=== PATIENT | female | born 1995 | race Caucasian/White ===

== ENCOUNTER 2018-11-04 11:50 | Inpatient (IN) ==
[2018-11-04] MEDS ORDERED: Sod Chloride 0.9% Inj 1,000 ML IV.SIG ONE (12:11)
[2018-11-04] MEDS ORDERED: Acetaminophen 325 MG Tablet PO ONE (12:11)
--- NOTE | 2018-11-04 12:15 | ED ---
HPI General Chief complaint: Nausea/Vomiting/Diarrhea Stated complaint: GI/ Complaint Time Seen by Provider: 11/04/18 12:11 History of Present Illness HPI narrative: SARABJIT Patient is a 23-year-old otherwise healthy female presents emergency department with headache back pain abdominal cramping fever and vomiting since as well as some nonbloody diarrhea starting from this morning. Patient states she did not get a flu shot this year. She is also been having some cough and congestion. She tried some Motrin earlier this morning with minimal relief. States she is never had symptoms like this before. Did not get a flu shot this year. No history of surgeries, non-smoker. States he feels just fairly run down. Symptoms moderate, started today, associated signs symptoms and context as above. Related Data Home Medications Medication Instructions Recorded Confirmed No Known Home Medications 11/04/18 11/04/18 Allergies Allergy/AdvReac Type Severity Reaction Status Date / Time No Known Allergies Allergy Verified 11/04/18 12:44 Review of Systems ROS: all other systems reviewed are negative [facility] Medical History Medical History Anemia (Acute) Asthma (Acute) Surgical History Surgical History No history of previous surgery (Acute) Family History Family History Other Family history normal Social History Social History Substance History: No History of Abuse Second Hand Smoke Exposure: No Smoking Status: Never smoker How Often Do You Have a Drink Containing Alcohol: Never Recent Travel in [facility] within the Last 8 Weeks: No Recent Out of Country Travel within the Last 8 Weeks: No Exam Narrative Exam Narrative: GENERAL: Well-developed well-nourished, no obvious distress. Appears healthy and nontoxic per SKIN: Focused skin assessment warm/dry. HEAD: Atraumatic. Normocephalic. EYES: Pupils equal and round. No scleral icterus. No injection or drainage. ENT: No nasal bleeding or discharge. Mucous membranes pink and moist. TMs clear bilaterally, oropharynx clear moist. NECK: Trachea midline. No JVD. CARDIOVASCULAR: Regular rhythm with tachycardia. No murmur appreciated. RESPIRATORY: No accessory muscle use. Clear to auscultation. Breath sounds equal bilaterally. GASTROINTESTINAL: Abdomen soft, non-tender, nondistended. Hepatic and splenic margins not palpable. MUSCULOSKELETAL: No obvious deformities. No clubbing. No cyanosis. No edema. NEUROLOGICAL: Awake and alert. No obvious cranial nerve deficits. Motor grossly within normal limits. Normal speech. PSYCHIATRIC: Appropriate mood and affect; insight and judgment normal. Course Initial Documented Vital Signs Temperature 100.3 F H 11/04/18 11:51 Pulse Rate 149 H 11/04/18 11:51 Respiratory Rate 22 11/04/18 11:51 Blood Pressure 129/75 11/04/18 11:51 Pulse Oximetry 97 11/04/18 11:51 Last Documented Vital Signs Temperature 98.1 F 11/05/18 04:00 Pulse Rate 109 H 11/05/18 04:00 Respiratory Rate 18 11/05/18 04:00 Blood Pressure 129/73 11/05/18 04:00 Pulse Oximetry 97 11/05/18 04:00 Medical Decision Making MDM Narrative Medical decision making narrative: Patient seen and examined by me Dr. Baker, signs symptoms consistent with influenza illness, pulse of 149, temp 100.3. Tylenol normal saline Zofran have been ordered. The patient defervesced as well she can be discharged home with treatment for influenza-like illness symptomatic management. Influenza testing is also been ordered. There is any indication for chest x-ray or further imaging at this time. Patient seen as part of rapid medical assessment in triage. They were handed off to the [facility] to follow the MDM as outlined above. If results are outside the patient's expected ED course then either myself or the other physicians will be available for consultation. CBC unremarkable. CMP unremarkable Lipase 82. Magnesium 1.9. Urinalysis without signs of infection. Influenza negative. Chest x-ray concludes: mild diffuse reticular/reticulonodular pattern in the lungs bilaterally. Recommend noncontrast chest CT to evaluate for interstitial lung disease. A copy of the x-ray report was printed out when will be provided to the patient. Patient's heart rate has 3 elevated back into the 130s and her fever is 100.8. EKG, CTA, Toradol ordered. Informed Dr. Sheriff if patient findings. She recommended a third normal saline bolus if EKG shows sinus tachycardia. EKG showed sinus tachycardia. Third normal saline bolus ordered. Patient continuously complaining of abdominal pain as I am discussing her findings and continue plan of care. I will add a CT abdomen/pelvis to rule out any acute findings. 1900: Patient reported off to Jaleesa Wilcox PA-C at change of shift. CT of the chest shows an atypical/possible fungal pneumonia. It is suggestive of a tuberculosis if patient is running a fever which patient has been running a fever since arrival. Discussed with Dr. Sheriff who stated that we will start patient on Rocephin and azithromycin admit to medicine for ID consultation. Patient will be placed in isolation/isolation precautions. Medical Screen Exam Complete: Yes Emergency Medical Condition: Yes Differential Diagnosis Differential Diagnosis: Pneumonia, sepsis, PE, appendicitis, gastroenteritis Lab Data Lab results reviewed: Yes I reviewed the patient's lab results. Result diagrams: 11/05/18 06:15 11/05/18 06:15 POC Results POC Urine Results Negative Lab Results 11/04/18 11/04/18 11/04/18 Range/Units 12:50 12:50 14:40 WBC 7.6 (4.0-11.0) th/mm3 RBC 5.46 H (4.00-5.30) mil/mm3 Hgb 11.9 (11.6-15.3) gm/dL Hct 37.3 (35.0-46.0) % MCV 68.4 L (80.0-100.0) fL MCH 21.9 L (27.0-34.0) pg MCHC 32.0 (32.0-36.0) % RDW 17.2 (11.6-17.2) % Plt Count 278 (150-450) th/mm3 MPV 8.7 (7.0-11.0) fL Neut % (Auto) 92.8 H (16.0-70.0) % Lymph % (Auto) 4.0 L (9.0-44.0) % Hart % (Auto) 3.1 (0.0-8.0) % Eos % (Auto) 0.0 (0.0-4.0) % Baso % (Auto) 0.1 (0.0-2.0) % Neut # (Auto) 7.1 (1.8-7.7) th/mm3 Lymph # (Auto) 0.3 L (1.0-4.8) th/mm3 Hart # (Auto) 0.2 (0.0-0.9) th/mm3 Eos # (Auto) 0.0 (0.0-0.4) th/mm3 Baso # (Auto) 0.0 (0.0-0.2) th/mm3 WBC Differential . Differential Comment Auto diff final Sodium 138 (136-145) meq/L Potassium 3.8 (3.5-5.1) meq/L Chloride 107 (98-107) meq/L Carbon Dioxide 23.9 (21.0-32.0) meq/L Anion Gap 7 (5-15) meq/L BUN 11 (7-18) mg/dL Creatinine 0.56 (0.50-1.00) mg/dL Estimated GFR Greater than 89 (>89) mL/min Random Glucose 94 (74-106) mg/dL Lactic Acid (0.4-2.0) mmol/L Calcium 8.3 L (8.5-10.1) mg/dL Calcium Adj for Albumin (8.5-10.1) mg/dL Magnesium 1.9 (1.5-2.5) mg/dL Total Bilirubin 0.5 (0.2-1.0) mg/dL AST 18 (15-37) U/L ALT 29 (10-53) U/L Alkaline Phosphatase 119 H (45-117) U/L Total Protein 7.6 (6.4-8.2) g/dL Albumin 3.7 (3.4-5.0) g/dL Lipase 82 (73-393) U/L Urine Color Yellow (Yellw/Straw) Urine Clarity Hazy H (Clear) Urine pH 5.0 (5.0-8.5) Ur Specific [place] 1.026 (1.002-1.035) Urine Protein Negative (Neg-Trace) mg/dL Urine Glucose (UA) Negative (Negative) mg/dL Urine Ketones 20 (Negative) mg/dL Urine Occult Blood Negative (Negative) Urine Nitrate Negative (Negative) Urine Bilirubin Negative (Negative) Urine Urobilinogen Less than 2 (Less than 2) mg/dL Ur Leukocyte Esterase Negative (Negative) Urine WBC Less than 1 (0-5) /hpf Ur Squamous Epith Cells 1 (0-5) /hpf Urine Bacteria Rare H (None) /hpf Urine Mucus Many H (Occasional) /lpf Micro UA Comment Culture not ind Ur Microscopic Review Not Reportable Urine Culture Comments Culture not ind Stl C.difficile DNA Amp (Negative) St C. diff Tox Epid 027 (Negative) 11/04/18 11/05/18 11/05/18 Range/Units 21:25 03:38 06:15 WBC 4.4 (4.0-11.0) th/mm3 RBC 4.74 (4.00-5.30) mil/mm3 Hgb 10.3 L (11.6-15.3) gm/dL Hct 32.3 L (35.0-46.0) % MCV 68.2 L (80.0-100.0) fL MCH 21.7 L (27.0-34.0) pg MCHC 31.8 L (32.0-36.0) % RDW 17.1 (11.6-17.2) % Plt Count 213 (150-450) th/mm3 MPV 9.0 (7.0-11.0) fL Neut % (Auto) 80.9 H (16.0-70.0) % Lymph % (Auto) 12.4 (9.0-44.0) % Hart % (Auto) 6.5 (0.0-8.0) % Eos % (Auto) 0.0 (0.0-4.0) % Baso % (Auto) 0.2 (0.0-2.0) % Neut # (Auto) 3.5 (1.8-7.7) th/mm3 Lymph # (Auto) 0.5 L (1.0-4.8) th/mm3 Hart # (Auto) 0.3 (0.0-0.9) th/mm3 Eos # (Auto) 0.0 (0.0-0.4) th/mm3 Baso # (Auto) 0.0 (0.0-0.2) th/mm3 WBC Differential . Differential Comment Auto diff final Sodium (136-145) meq/L Potassium (3.5-5.1) meq/L Chloride (98-107) meq/L Carbon Dioxide (21.0-32.0) meq/L Anion Gap (5-15) meq/L BUN (7-18) mg/dL Creatinine (0.50-1.00) mg/dL Estimated GFR (>89) mL/min Random Glucose (74-106) mg/dL Lactic Acid 0.9 (0.4-2.0) mmol/L Calcium (8.5-10.1) mg/dL Calcium Adj for Albumin (8.5-10.1) mg/dL Magnesium (1.5-2.5) mg/dL Total Bilirubin (0.2-1.0) mg/dL AST (15-37) U/L ALT (10-53) U/L Alkaline Phosphatase (45-117) U/L Total Protein (6.4-8.2) g/dL Albumin (3.4-5.0) g/dL Lipase (73-393) U/L Urine Color (Yellw/Straw) Urine Clarity (Clear) Urine pH (5.0-8.5) Ur Specific [place] (1.002-1.035) Urine Protein (Neg-Trace) mg/dL Urine Glucose (UA) (Negative) mg/dL Urine Ketones (Negative) mg/dL Urine Occult Blood (Negative) Urine Nitrate (Negative) Urine Bilirubin (Negative) Urine Urobilinogen (Less than 2) mg/dL Ur Leukocyte Esterase (Negative) Urine WBC (0-5) /hpf Ur Squamous Epith Cells (0-5) /hpf Urine Bacteria (None) /hpf Urine Mucus (Occasional) /lpf Micro UA Comment Ur Microscopic Review Urine Culture Comments Stl C.difficile DNA Amp Negative (Negative) St C. diff Tox Epid 027 Negative (Negative) 11/05/18 Range/Units 06:15 WBC (4.0-11.0) th/mm3 RBC (4.00-5.30) mil/mm3 Hgb (11.6-15.3) gm/dL Hct (35.0-46.0) % MCV (80.0-100.0) fL MCH (27.0-34.0) pg MCHC (32.0-36.0) % RDW (11.6-17.2) % Plt Count (150-450) th/mm3 MPV (7.0-11.0) fL Neut % (Auto) (16.0-70.0) % Lymph % (Auto) (9.0-44.0) % Hart % (Auto) (0.0-8.0) % Eos % (Auto) (0.0-4.0) % Baso % (Auto) (0.0-2.0) % Neut # (Auto) (1.8-7.7) th/mm3 Lymph # (Auto) (1.0-4.8) th/mm3 Hart # (Auto) (0.0-0.9) th/mm3 Eos # (Auto) (0.0-0.4) th/mm3 Baso # (Auto) (0.0-0.2) th/mm3 WBC Differential Differential Comment Sodium 140 (136-145) meq/L Potassium 3.1 L (3.5-5.1) meq/L Chloride 110 H (98-107) meq/L Carbon Dioxide 19.8 L (21.0-32.0) meq/L Anion Gap 10 (5-15) meq/L BUN 6 L (7-18) mg/dL Creatinine 0.41 L (0.50-1.00) mg/dL Estimated GFR Greater than 89 (>89) mL/min Random Glucose 87 (74-106) mg/dL Lactic Acid (0.4-2.0) mmol/L Calcium 7.1 L* D (8.5-10.1) mg/dL Calcium Adj for Albumin 8.1 L (8.5-10.1) mg/dL Magnesium (1.5-2.5) mg/dL Total Bilirubin (0.2-1.0) mg/dL AST (15-37) U/L ALT (10-53) U/L Alkaline Phosphatase (45-117) U/L Total Protein (6.4-8.2) g/dL Albumin 2.8 L D (3.4-5.0) g/dL Lipase (73-393) U/L Urine Color (Yellw/Straw) Urine Clarity (Clear) Urine pH (5.0-8.5) Ur Specific [place] (1.002-1.035) Urine Protein (Neg-Trace) mg/dL Urine Glucose (UA) (Negative) mg/dL Urine Ketones (Negative) mg/dL Urine Occult Blood (Negative) Urine Nitrate (Negative) Urine Bilirubin (Negative) Urine Urobilinogen (Less than 2) mg/dL Ur Leukocyte Esterase (Negative) Urine WBC (0-5) /hpf Ur Squamous Epith Cells (0-5) /hpf Urine Bacteria (None) /hpf Urine Mucus (Occasional) /lpf Micro UA Comment Ur Microscopic Review Urine Culture Comments Stl C.difficile DNA Amp (Negative) St C. diff Tox Epid 027 (Negative) Imaging Data Attestation: I personally reviewed and interpreted this imaging study as follows : Radiologist's impression: Chest X-Ray 11/04/18 17:24 CONCLUSION: Mild diffuse reticular/reticulonodular pattern in the lungs bilaterally. Recommend noncontrast chest CT to evaluate for interstitial lung disease. Chest CTA 11/04/18 18:34 CONCLUSION: 1. Miliary pattern. Differential diagnostic considerations are quite broad and can be divided into the a febrile and nonfebrile patient. If the patient is febrile infectious etiologies that are atypical such as tuberculosis or fungal fungal should be considered. In the afebrile patient considerations would include hypersensitivity pneumonitis, sarcoidosis, and Langerhans cell histiocytosis just to name a few. Abdomen/Pelvis CT 11/04/18 18:59 CONCLUSION: 1. Trace amount of free fluid within the cul-de-sac. 2. No acute abnormality. Discharge Plan Discharge Disposition Patient Disposition: ED Admit(ED Internal Use Only) Discharge Condition Condition: Stable Discharge Order Discharge Orders: ED Use Only Admit Order (Routine); Ordered 11/04/18 Ordered By: Jaleesa Wilcox Discharge Details Diagnosis: Fever, Tachycardia, Pneumonia Physicians Team ED Provider: Humphrey Baker ED Midlevel Provider: Felecia Sotomayor Primary Care Provider: Primary Care Jasmin Perez Attending Provider: Dmitriy Whitten Other Providers: Dominik Fuentes Status ED Status: Left Department Discharge Information Discharge Date/Time: 11/05/18 01:18
[2018-11-04 13:08] LABS: Baso % (Auto) 0.1 % (0.0-2.0); Hematocrit 37.3 % (35.0-46.0); Hemoglobin 11.9 gm/dL (11.6-15.3); Lymph # (Auto) 0.3 th/mm3 (1.0-4.8); Mean Corpuscular Hemoglobin 21.9 pg (27.0-34.0); Mean Corpuscular Volume 68.4 fL (80.0-100.0); Mean Platelet Volume 8.7 fL (7.0-11.0); Mono # (Auto) 0.2 th/mm3 (0.0-0.9); Mono % (Auto) 3.1 % (0.0-8.0); Neut # (Auto) 7.1 th/mm3 (1.8-7.7); Neut % (Auto) 92.8 % (16.0-70.0); Platelet Count 278 th/mm3 (150-450); Red Blood Count 5.46 mil/mm3 (4.00-5.30); Red Cell Distribution Width 17.2 % (11.6-17.2); White Blood Count 7.6 th/mm3 (4.0-11.0)
[2018-11-04 13:28] LABS: Alanine Aminotransferase 29 U/L (10-53); Albumin 3.7 g/dL (3.4-5.0); Anion Gap 7 meq/L (5-15); Aspartate Aminotransferase 18 U/L (15-37); Blood Urea Nitrogen 11 mg/dL (7-18); Calcium 8.3 mg/dL (8.5-10.1); Carbon Dioxide 23.9 meq/L (21.0-32.0); Chloride 107 meq/L (98-107); Glomerular Filtration Rate Greater Than 89 mL/min (>89); Glucose,Random 94 mg/dL (74-106); Lipase 82 U/L (73-393); Magnesium 1.9 mg/dL (1.5-2.5); Potassium 3.8 meq/L (3.5-5.1); Sodium 138 meq/L (136-145)
[2018-11-04 13:30] LABS: Alkaline Phosphatase 119 U/L (45-117); Total Protein 7.6 g/dL (6.4-8.2)
[2018-11-04 15:10] LABS: Bacteria,Urine Rare /hpf; Bilirubin,Urine Negative (Negative); Clarity,Urine Hazy (Clear); Color,Urine Yellow (Yellw/Straw); Glucose,Urine (UA) Negative (Negative); Leukocyte Esterase,Urine Negative (Negative); Mucus,Urine Many /lpf (Occasional); Nitrite,Urine Negative (Negative); Specific Gravity,Urine 1.026 (1.002-1.035); Squamous Epithelial Cell,Urine 1 /hpf (0-5)
[2018-11-04] MEDS ORDERED: Sod Chloride 0.9% Inj 1,000 ML IV.SIG SCH ×2 (17:30→19:00)
--- NOTE | 2018-11-04 17:50 | XR ---
EXAM DATE: 11/04/2018 5:47 PM EST AGE/SEX: 23 years / Female INDICATIONS: Cough. CLINICAL DATA: This is the patient's initial encounter. Patient reports that signs and symptoms have been present for 1 day and indicates a pain score of 0/10. MEDICAL/SURGICAL HISTORY: None. None. COMPARISON: No prior exams available for comparison. FINDINGS: Single AP view of the chest. There is a faint diffuse reticular or reticulonodular pattern in the jake gs. No evidence of focal pulmonary consolidation. No pleural effusion or pneumothorax. Cardiomediasti nal silhouette within normal limits. CONCLUSION: Mild diffuse reticular/reticulonodular pattern in the lungs bilaterally. Recommend noncontrast chest CT to evaluate for interstitial lung disease. Electronically signed by: Luigi Landry MD Board Certified Radiologist 11/04/2018 5:49 PM EST
[2018-11-04] MEDS ORDERED: Ketorolac Inj 30 MG/ML (IVP) Vial IV.PUSH ONE (18:44)
--- NOTE | 2018-11-04 19:30 | CT ---
EXAM DATE: 11/04/2018 7:21 PM EST AGE/SEX: 23 years / Female INDICATIONS: Chest x-ray recommended cat scan of chest, body aches, fever, vomiting, cough. CLINICAL DATA: This is the patient's initial encounter. Patient reports that signs and symptoms have been present for 1 day and indicates a pain score of 10/10. MEDICAL/SURGICAL HISTORY: Asthma. Anemia. None. RADIATION DOSE: 6.81 CTDI (mGy) COMPARISON: C, CHEST 1V SINGLE AP, 11/04/2018. . TECHNIQUE: Volumetric scanning was performed using a multi-row detector CT scanner during bolus infu grace of 64 ml Omnipaque 350 (iohexol) nonionic water-soluble contrast as a cumulative dose for multi ple exams. The data was post processed with a variety of visualization algorithms including full volu me maximum intensity projection and sliding thin slab reformation. Using automated exposure control a nd adjustment of the mA and/or kV according to patient size, radiation dose was kept as low as reason ably achievable to obtain optimal diagnostic quality images. DICOM format image data is available el ectronically for review and comparison. FINDINGS: Pulmonary Arteries: No filling defects are seen in the pulmonary arteries out to the subsegmental ve ssels. The left and right pulmonary arteries are normal in diameter. Lung: A miliary pattern is seen involving the lungs. Subpleural interlobular septal thickening also noted.. Effusion: None. Mediastinum: The heart is normal in size. No pericardial effusion. No evidence of mediastinal or christa r adenopathy. Other: The axilla is unremarkable. See the CT of the abdomen reported separately. CONCLUSION: 1. Miliary pattern. Differential diagnostic considerations are quite broad and can be divided into t he a febrile and nonfebrile patient. If the patient is febrile infectious etiologies that are atypica l such as tuberculosis or fungal fungal should be considered. In the afebrile patient considerations would include hypersensitivity pneumonitis, sarcoidosis, and Langerhans cell histiocytosis just to na me a few. Electronically signed by: Laurent Mcgowan MD Board Certified Radiologist 11/04/2018 7:28 PM EST
--- NOTE | 2018-11-04 19:54 | CT ---
EXAM DATE: 11/04/2018 7:47 PM EST AGE/SEX: 23 years / Female INDICATIONS: Body aches fever, vomiting, cough, back pain. CLINICAL DATA: This is the patient's initial encounter. Patient reports that signs and symptoms have been present for 1 day and indicates a pain score of 10/10. MEDICAL/SURGICAL HISTORY: Anemia. Asthma. None. ORAL CONTRAST: No oral contrast ingested. RADIATION DOSE: 9.53 CTDI (mGy) COMPARISON: No prior exams available for comparison. TECHNIQUE: Multiple contiguous axial images were obtained through the abdomen and pelvis following b olus infusion of 64 ml Omnipaque 350 (iohexol) nonionic water-soluble contrast as a cumulative dose for multiple exams. No oral contrast ingested. Using automated exposure control and adjustment of t he mA and/or kV according to patient size, radiation dose was kept as low as reasonably achievable to obtain optimal diagnostic quality images. DICOM format image data is available electronically for r eview and comparison. FINDINGS: Lower Lungs: See the CT of the thorax dictated separately.. Liver: The liver has a homogeneous density without space-occupying lesion. There is no dilation of th e biliary tree. Gallbladder is unremarkable. Spleen: Homogeneous density without enlargement. Pancreas: Unremarkable without mass or calcification. Kidneys: Normal in size and shape. No evidence of mass or hydronephrosis. Adrenal Glands: Unremarkable. Aorta: The aorta and proximal iliac vessels are grossly unremarkable without aneurysmal dilation. Bowel/Mesentery: The bowel loops are grossly unremarkable. The cecum and sigmoid colon have a normal configuration. Abdominal Wall: Intact. Retroperitoneum: No evidence of adenopathy in the retrocrural, para-aortic, or deep pelvic regions. Bladder: Contours are smooth. Reproductive Organs: Trace amount of free fluid within the cul-de-sac. No abnormal masses or calcific ations seen. Inguinal: The inguinal region is unremarkable without evidence of adenopathy. Bony Structures: Unremarkable. CONCLUSION: 1. Trace amount of free fluid within the cul-de-sac. 2. No acute abnormality. Electronically signed by: Laurent Mcgowan MD Board Certified Radiologist 11/04/2018 7:53 PM EST
[2018-11-04] MEDS ORDERED: Azithromycin 250 MG Tablet PO ONE (20:30)
[2018-11-04] MEDS ORDERED: Bisacodyl 10 MG Supp RECTAL PRN (21:01)
[2018-11-04] MEDS: Sod Chloride 0.9% Inj 1,000 ML IV.CONT SCH (21:41)
--- NOTE | 2018-11-04 22:44 | P.HPIM ---
History of Present Illness Primary Care Physician: No Primary Care Physician 23-year-old female with a past medical history significant for asthma presents the emergency department for evaluation of nausea, vomiting and diarrhea. The patient reports that her symptoms started approximately 2 AM. She endorses associated abdominal, back and chest pain. She describes the chest pain as mild. She also states she has a nonproductive cough. Denies any fevers/chills at home however was febrile on arrival to the emergency department. No shortness of breath. No focal neurologic deficits. Inpatient Certification Inpatient Certification: I certify that the inpatient services were ordered in accordance with Medicare regulations governing the order. This includes certification that hospital inpatient services are reasonable and necessary and in the case of services not specified as inpatient-only under 42 CFR 419.22(n), that they are appropriately provided as inpatient services in accordance to with the 2-midnight benchmark under 43 CFR 412.3(e) Estimated Total Length of Stay (Days): 3 Plans for Post Hospital Care: Not yet determined Review of Systems Review of Systems: all other systems reviewed are negative [facility] Medical History Medical History Anemia (Acute) Asthma (Acute) Surgical History Surgical History No history of previous surgery (Acute) Family History Family History Other Family history normal Social History Social History Smoking Status: Never smoker How Often Do You Have a Drink Containing Alcohol: Never Recent Travel in [place] within the Last 8 Weeks: No Recent Out of Country Travel within the Last 8 Weeks: No Immunization History Tetanus Immunization: <5 Years Medications and Allergies Allergies Allergy/AdvReac Type Severity Reaction Status Date / Time No Known Allergies Allergy Verified 11/04/18 12:44 Home Medications Medication Instructions Recorded Confirmed Type No Known Home Medications 11/04/18 11/04/18 History Active Medications: Active Medications Acetaminophen (Tylenol) 650 mg PO Q4H PRN PRN Reason: Temp > 100.4 Al Hydroxide/Mg Hydroxide (Milk Of Magnesia Liq) 30 ml PO Q12H PRN PRN Reason: Mild Constipation Bisacodyl (Dulcolax Supp) 10 mg RECTAL DAILY PRN PRN Reason: SEVERE CONSITIPATION Sodium Chloride (Ns Inj) 1,000 mls @ 100 mls/hr IV.CONT .Q10H [facility] Last Admin: 11/04/18 21:41 Dose: 100 mls/hr Lactulose (Lactulose Liq) 30 ml PO DAILY PRN PRN Reason: SEVERE CONSITIPATION Ondansetron HCl (Zofran Inj) 4 mg IV.PUSH Q6H PRN PRN Reason: NAUSEA OR VOMITING Senna/Docusate Sodium (Brielle-Colace) 1 tab PO BID [facility] Sennosides (Senokot) 17.2 mg PO Q12H PRN PRN Reason: Moderate Constipation Sodium Chloride (Ns Flush) 2 ml IV.FLUSH PRN PRN PRN Reason: FLUSH AFTER USING IV ACCESS Last Admin: 11/04/18 19:05 Dose: 2 ml Sodium Chloride (Ns Flush) 2 ml IV.FLUSH BID [facility] Sodium Chloride (Ns Flush) 2 ml IV.FLUSH PRN PRN PRN Reason: FLUSH AFTER USING IV ACCESS Physical Exam Vital signs: Vital Signs 11/04/18 11:51 11/04/18 18:15 11/04/18 19:47 Temperature 100.3 F H 100.8 F H Pulse Rate 149 H 139 H Respiratory Rate 22 22 20 Blood Pressure 129/75 Pulse Oximetry 97 97 11/04/18 19:58 Temperature 100.0 F H Pulse Rate 128 H Respiratory Rate 20 Blood Pressure 118/72 Pulse Oximetry 98 Intake & Output 11/04/18 11/04/18 11/05/18 06:59 18:59 06:59 Intake Total 1999 1100 / 1100 Balance 1999 1100 / 1100 Weight 61.235 kg Intake: IV 1999 1100 / 1100 NS Inj 1,000 ML @ 1000 mls/hr 1999 1000 / 1000 IV.SIG BOLUS [facility] Rx#:[id number] Rocephin Inj 1,000 MG In NS Inj 100 / 100 100 ML @ 200 mls/hr IV.SIG ONCE ONE Rx#:[id number] Narrative: Gen.: No acute distress Head: Normocephalic. Atraumatic. EENT: Pupils equal round and reactive to light. Nose without drainage. Airway intact. Throat without injection. Cardiovascular: Regular rate and rhythm. No murmurs, rubs or gallops. Respiratory: Lungs clear to auscultation bilaterally. No wheezes or rhonchi. Abdomen: Soft, nontender, nondistended. No peritoneal signs. Musculoskeletal: No gross deformities. No edema. Skin: No obvious rashes or erythema. Neuro: Sensory and motor grossly intact. Cranial nerves II through XII grossly intact. Results Labs CBC & Chem 7: 11/04/18 12:50 11/04/18 12:50 Imaging Impressions Chest X-Ray 11/04/18 17:24 CONCLUSION: Mild diffuse reticular/reticulonodular pattern in the lungs bilaterally. Recommend noncontrast chest CT to evaluate for interstitial lung disease. Chest CTA 11/04/18 18:34 CONCLUSION: 1. Miliary pattern. Differential diagnostic considerations are quite broad and can be divided into the a febrile and nonfebrile patient. If the patient is febrile infectious etiologies that are atypical such as tuberculosis or fungal fungal should be considered. In the afebrile patient considerations would include hypersensitivity pneumonitis, sarcoidosis, and Langerhans cell histiocytosis just to name a few. Abdomen/Pelvis CT 11/04/18 18:59 CONCLUSION: 1. Trace amount of free fluid within the cul-de-sac. 2. No acute abnormality. Caprini VTE Risk Assessment Caprini VTE Risk Assessment: No/Low Risk (score <= 1) Caprini Risk Assessment Model: Point Value = 1 Point Value = 2 Point Value = 3 Point Value = 5 Age 41-60 Minor surgery BMI > 25 kg/m2 Swollen legs Varicose veins or History of unexplained or recurrent spontaneous Oral contraceptives or hormone replacement Sepsis (< 1 month) Serious lung disease, including pneumonia (< 1 month) Abnormal pulmonary function Acute myocardial infarction Congestive heart failure (< 1 month) History of inflammatory bowel disease Medical patient at bed rest Age 61-74 Arthroscopic surgery Major open surgery (> 45 min) Laparoscopic surgery (> 45 min) Malignancy Confined to bed (> 72 hours) Immobilizing plaster cast Central venous access Age >= 75 History of VTE Family history of VTE Factor V Leiden Prothrombin [id number] Lupus anticoagulant Anticardiolipin antibodies Elevated serum homocysteine Heparin-induced thrombocytopenia Other congenital or acquired thrombophilia Stroke (< 1 month) Elective arthroplasty Hip, pelvis, or leg fracture Acute spinal cord injury (< 1 month) Prophylaxis Regimen: Total Risk Factor Score Risk Level Prophylaxis Regimen 0-1 Low Early ambulation 2 Moderate Order ONE of the following: *Sequential Compression Device (SCD) *Heparin 5000 units SQ BID 3-4 Higher Order ONE of the following medications: *Heparin 5000 units SQ TID *Enoxaparin/Lovenox 40 mg SQ daily (WT < 150 kg, CrCl > 30 mL/min) *Enoxaparin/Lovenox 30 mg SQ daily (WT < 150 kg, CrCl > 10-29 mL/min) *Enoxaparin/Lovenox 30 mg SQ BID (WT < 150 kg, CrCl > 30 mL/min) AND/OR *Sequential Compression Device (SCD) 5 or more Highest Order ONE of the following medications: *Heparin 5000 units SQ TID (Preferred with Epidurals) *Enoxaparin/Lovenox 40 mg SQ daily (WT < 150 kg, CrCl > 30 mL/min) *Enoxaparin/Lovenox 30 mg SQ daily (WT < 150 kg, CrCl > 10-29 mL/min) *Enoxaparin/Lovenox 30 mg SQ BID (WT < 150 kg, CrCl > 30 mL/min) AND *Sequential Compression Device (SCD) Assessment and Plan Plan Assessment/plan: 1. Sepsis/? PNA Patient febrile and tachycardic Lactic acid, sputum and blood cultures pending Chest CT significant for miliary pattern concerning for infectious etiology such as tuberculosis or fungal versus pneumonitis or sarcoidosis Azithromycin and Rocephin while awaiting cultures QuantiFERON gold pending AFB culture pending Infectious disease consulted, appreciate assistance IV fluids 2. Nausea/vomiting/diarrhea Symptoms have improved with Zofran CT of the abdomen/pelvis negative for acute process FEN Regular diet Electrolytes: Monitor and replete as needed NS at 100 cc/hour
[2018-11-05 06:52] LABS: Baso % (Auto) 0.2 % (0.0-2.0); Hematocrit 32.3 % (35.0-46.0); Hemoglobin 10.3 gm/dL (11.6-15.3); Lymph # (Auto) 0.5 th/mm3 (1.0-4.8); Lymph % (Auto) 12.4 % (9.0-44.0); Mean Corpuscular HGB Conc 31.8 % (32.0-36.0); Mean Corpuscular Hemoglobin 21.7 pg (27.0-34.0); Mean Corpuscular Volume 68.2 fL (80.0-100.0); Mono # (Auto) 0.3 th/mm3 (0.0-0.9); Mono % (Auto) 6.5 % (0.0-8.0); Neut # (Auto) 3.5 th/mm3 (1.8-7.7); Neut % (Auto) 80.9 % (16.0-70.0); Platelet Count 213 th/mm3 (150-450); Red Blood Count 4.74 mil/mm3 (4.00-5.30); Red Cell Distribution Width 17.1 % (11.6-17.2); White Blood Count 4.4 th/mm3 (4.0-11.0)
[2018-11-05 07:13] LABS: Anion Gap 10 meq/L (5-15); Blood Urea Nitrogen 6 mg/dL (7-18); Calcium 7.1 mg/dL (8.5-10.1); Carbon Dioxide 19.8 meq/L (21.0-32.0); Chloride 110 meq/L (98-107); Glomerular Filtration Rate Greater Than 89 mL/min (>89); Glucose,Random 87 mg/dL (74-106); Potassium 3.1 meq/L (3.5-5.1); Sodium 140 meq/L (136-145)
[2018-11-05 07:24] LABS: Albumin 2.8 g/dL (3.4-5.0); Calcium-Albumin Corrected 8.1 mg/dL (8.5-10.1)
[2018-11-05] MEDS ORDERED: Senna/Docusate Sodium 8.6/50 MG Tablet PO SCH (09:00)
--- NOTE | 2018-11-05 11:21 | ECG ---
Date Performed: 11/04/2018 Time Performed: 18:46:40 PTAGE: 23 years EKG: SINUS TACHYCARDIA WITH SHORT RI INTERVAL NONSPECIFIC ST & T-WAVE ABNORMALITY ABNORMAL RHYTH M ECG NO PREVIOUS TRACING DOCTOR: Bandar Jones Interpretating Date/Time 11/05/2018 11:18:32
[2018-11-05] MEDS: Sod Chloride 0.9% Inj 1,000 ML IV.CONT SCH ×2 (11:30→22:36)
--- NOTE | 2018-11-05 13:20 | P.PNIM ---
Subjective Interval history: f/u; fever in no acute distress. no sob. has occasional mild cough. no fever this morning. had some diarrhea earlier. no other complaints. Physical Exam Vital signs: Vital Signs 11/04/18 18:15 11/04/18 19:47 11/04/18 19:58 Temperature 100.8 F H 100.0 F H Pulse Rate 139 H 128 H Respiratory Rate 22 20 20 Blood Pressure 118/72 Pulse Oximetry 97 98 11/05/18 00:10 11/05/18 04:00 Temperature 98.9 F 98.1 F Pulse Rate 111 H 109 H Respiratory Rate 20 18 Blood Pressure 120/70 129/73 Pulse Oximetry 98 97 Intake & Output 11/04/18 11/05/18 11/05/18 18:59 06:59 18:59 Intake Total 1999 1100 / 1100 Balance 1999 1100 / 1100 Weight 61.235 kg 64.5 kg Intake: IV 1999 1100 / 1100 NS Inj 1,000 ML @ 1000 mls/hr 1999 1000 / 1000 IV.SIG BOLUS [facility] Rx#:[id number] Rocephin Inj 1,000 MG In NS Inj 100 / 100 100 ML @ 200 mls/hr IV.SIG ONCE ONE Rx#:[id number] Other: Date of Last Bowel Movement 11/05/18 11/05/18 # Bowel Movements 2 Weight On Admission 60.9 kg Constitutional no acute distress Routine Respiratory Exam Present CTA bilaterally Routine Cardiovascular Exam Present RRR Routine Abdominal Exam Present soft Routine Extremities Exam Comments: no pedal edema. Routine Neurological Exam Present alert and oriented X3 Results Labs CBC & Chem 7: 11/05/18 06:15 11/05/18 06:15 Labs: Microbiology 11/04/18 21:30 Blood - Peripheral Aerobic Blood Culture - Preliminary No growth in 1 day 11/04/18 21:30 Blood - Peripheral Anaerobic Blood Culture - Preliminary No growth in 1 day 11/04/18 21:25 Blood - Peripheral Aerobic Blood Culture - Preliminary No growth in 1 day 11/04/18 21:25 Blood - Peripheral Anaerobic Blood Culture - Preliminary No growth in 1 day 11/04/18 12:50 Nasal Wash Influenza Types A,B Antigen - Final Negative for FLU A and B antigen Infection due to influenza A or B cannot be ruled out since the antigen present in the sample may be below the detection limit of the test. Imaging Imaging: Impressions Chest X-Ray 11/04/18 17:24 CONCLUSION: Mild diffuse reticular/reticulonodular pattern in the lungs bilaterally. Recommend noncontrast chest CT to evaluate for interstitial lung disease. Chest CTA 11/04/18 18:34 CONCLUSION: 1. Miliary pattern. Differential diagnostic considerations are quite broad and can be divided into the a febrile and nonfebrile patient. If the patient is febrile infectious etiologies that are atypical such as tuberculosis or fungal fungal should be considered. In the afebrile patient considerations would include hypersensitivity pneumonitis, sarcoidosis, and Langerhans cell histiocytosis just to name a few. Abdomen/Pelvis CT 11/04/18 18:59 CONCLUSION: 1. Trace amount of free fluid within the cul-de-sac. 2. No acute abnormality. Assessment and Plan Plan A/P 1. Sepsis/? PNA Patient febrile and tachycardic Lactic acid, sputum and blood cultures pending Chest CT significant for miliary pattern concerning for infectious etiology such as tuberculosis or fungal versus pneumonitis or sarcoidosis received Rocephin and Zithromax in ER QuantiFERON gold pending AFB culture pending Infectious disease consulted, appreciate assistance; antibiotics per ID. 2. Nausea/vomiting/diarrhea Symptoms have improved with Zofran CT of the abdomen/pelvis negative for acute process stop scheduled marleni colace and start on imodium as needed. stool negative for c-diff. Discussed Condition With: the patient, RN and . Discharge Planning: home when stable. Progress Note: Quality VTE Deep Vein Thrombosis/Pulmonary Embolism Present on Admission: No
[2018-11-05] MEDS ORDERED: Azithromycin Inj 500 MG in Sodium Chlor 0.9% Inj 250 ML IV.SIG SCH (14:00)
[2018-11-05] MEDS ORDERED: MethylPREDNISolone Sod Succinate Inj 125 MG/2 ML Vial IV.PUSH SCH (14:00)
--- NOTE | 2018-11-05 14:30 | MB ---
cc: Dominik Fuentes MD DATE: 11/05/2018 REQUESTING PHYSICIAN: Dr. Gong. REASON: Chest CT with miliary pattern concerning for TB/fungal infection versus noninfectious etiology. HISTORY OF PRESENT ILLNESS: This is a 23-year-old female originally from [place] who has a history of asthma. She presented to the emergency department yesterday with nausea, vomiting and diarrhea. 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 She also states having some body aches and very low energy. Chest x-ray reported mild diffuse reticular/reticulonodular pattern in the lungs bilaterally. Patient has cough, which is nonproductive of sputum. The chest x-ray did findings were concerning for possible tuberculosis or other infectious process. The patient reports that her mom, who is a nurse, has had allergies recently. She does not recall any exposure to sick persons besides. She works at [employer]. The patient also noted decreased appetite and she tells me that she has had night sweats, but no weight loss. She does not recall exposure to any family members with tuberculosis in the past. The patient moved to [facility] from [place] 5 years ago. She states that she used to have asthma in childhood and it had resolved and then it came back again about a year ago and she occasionally uses an inhaler. She denies IV drug use. He does not use tobacco or alcohol. She notes that she is sexually active in a single relationship and has not had any blood transfusion in the past. She denies weight loss. White blood cell count is 4.4 with 80% neutrophils. Urinalysis was unremarkable. Stool for C. difficile toxin negative. QuantiFERON test for tuberculosis is pending. The patient did not receive a flu shot recently. Testing for influenza A and B antigen is negative PAST MEDICAL HISTORY: Asthma, new infection PAST SURGICAL HISTORY: No surgical history. The patient received a dose of azithromycin and ceftriaxone. FAMILY HISTORY: Noncontributory. SOCIAL HISTORY: No tobacco, no alcohol, no illicit drugs. REVIEW OF SYSTEMS: All systems have been reviewed. Pertinent features are mentioned in history of present illness. PHYSICAL EXAMINATION: GENERAL: This is a well-developed, well-nourished appearing female in no acute distress. She is awake and alert and oriented. VITAL SIGNS: Temperature 98.1, BP 129/73, respirations 18, heart rate 109. HEENT: Head is atraumatic. Extraocular movements are grossly intact. Pupils reactive to light. No icterus. Oropharynx mucosa moist. No visible lesions. NECK: Supple without adenopathy. LUNGS: Clear to auscultation with diminished breath sounds throughout. HEART: Regular S1, S2, without murmurs, rubs or gallops. ABDOMEN: Bowel sounds present. Soft, no tenderness. RECTAL: Not performed. EXTREMITIES: No clubbing, cyanosis or edema. SKIN: No rash. NEUROLOGIC: No gross focal findings. PSYCHIATRIC: Patient is calm and cooperative. LABORATORY DATA: WBC 4.4, hemoglobin 10.3, platelet count 213, 80% neutrophils, 12% lymphocytes, 6% monocytes. Creatinine 0.41, BUN 6, sodium 140. Liver function tests normal. IMAGIN. CT scan of the abdomen showed trace amount of free fluid within the cul-de-sac. No acute abnormality. 2. CT of the chest shows miliary pattern. IMPRESSION: Bilateral pulmonary infiltrates with miliary pattern on chest x-ray. The patient with cough along with back pain and diarrhea. She denies exposure to anyone with history of tuberculosis in the past. Differential includes tuberculosis versus viral respiratory infection versus atypical pneumonia versus autoimmune process with pneumonitis. Her history does not give any significant exposure that would make for clear cause of the infiltrates. RECOMMENDATIONS: 1. Send sputum for respiratory viral culture. 2. Monitor sputum AFB collected. 3. Monitor QuantiFERON test. 4. Send mycoplasma serology. 5. Send stool for ova and parasites. 6. Continue azithromycin. 7. Monitor blood cultures. 8. Monitor the temperature which is low-grade elevated. Thank you for this consultation. I will follow the patient's progress along with you and will make further recommendations on followup. MD KVNG Oglesby/carlos eduardo , 01:34 PM , 01:51 PM GEOVANY
[2018-11-05] MEDS: Loperamide 2 MG Capsule PO PRN (22:33)
[2018-11-06] MEDS ORDERED: Vancomycin Consult Pharmacy OTHER PRN (01:04)
[2018-11-06] MEDS ORDERED: Vancomycin Inj 1,000 MG in Sodium Chlor 0.9% Inj 250 ML IV.SIG ONE ×2 (01:05→02:00)
[2018-11-06] MEDS: Sod Chloride 0.9% Inj 1,000 ML IV.CONT SCH ×3 (02:33→23:38)
[2018-11-06] MEDS: Piperacil/Tazo 4.5 GM Premix 4.5 GM/100 ML BAG IV.SIG SCH ×4 (02:34→20:43)
[2018-11-06] MEDS: Pantoprazole Inj 40 MG Vial IV.PUSH SCH ×2 (04:05→15:41)
[2018-11-06 07:09] LABS: Anion Gap 9 meq/L (5-15); Blood Urea Nitrogen 4 mg/dL (7-18); Calcium 7.6 mg/dL (8.5-10.1); Carbon Dioxide 18.6 meq/L (21.0-32.0); Chloride 113 meq/L (98-107); Glomerular Filtration Rate Greater Than 89 mL/min (>89); Glucose,Random 72 mg/dL (74-106); Potassium 3.2 meq/L (3.5-5.1); Sodium 141 meq/L (136-145)
[2018-11-06] MEDS: Loperamide 2 MG Capsule PO PRN ×2 (10:11→20:43)
[2018-11-06] MEDS ORDERED: Potassium Chloride Liq 20 MEQ/15 ML UDC PO ONE (11:15)
--- NOTE | 2018-11-06 12:15 | P.PNID ---
Subjective Remarks: Patient states she feels better. Appetite is better. He has less nausea and vomiting and less diarrhea. Able to eat without having nausea. Denies chills. Has nonproductive cough. No shortness of breath. She is not on supplemental oxygen. Sputum AFB is pending. QuantiFERON test is pending. Blood culture has staph coag negative in 2 bottles of one set. The second set is negative. This is a 23-year-old female originally from [place] who has a history of asthma. She presented to the emergency department yesterday with nausea, vomiting and diarrhea. 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 She also states having some body aches and very low energy. Chest x-ray reported mild diffuse reticular/reticulonodular pattern in the lungs bilaterally. Patient has cough, which is nonproductive of sputum. Chest x-ray findings were concerning for possible tuberculosis or other infectious process. The patient reports that her mom, who is a nurse, has had the allergies recently. The patient also noted decreased appetite and she tells me that she has had night sweats, but no weight loss. She does not recall exposure to any family members with tuberculosis in the past. The patient moved to [facility] from [place] 5 years ago. She states that she used to have asthma in childhood and it had resolved and then it came back again about a year ago and she occasionally uses an inhaler. She denies IV drug use. He does not use tobacco or alcohol. She notes that she is sexually active in a single relationship and has not had any blood transfusion in the past. Past Medical History: PAST MEDICAL HISTORY: Asthma, new infection PAST SURGICAL HISTORY: No surgical history. Allergies/Adverse Reactions: Allergies No Known Allergies Allergy (Verified 11/04/18 12:44) Objective Vital Signs 11/05/18 16:00 11/05/18 19:00 11/05/18 20:00 Temperature 98.3 F 98.7 F Pulse Rate 110 H 98 H 107 H Respiratory Rate 16 18 Blood Pressure 124/79 125/73 Pulse Oximetry 99 100 11/05/18 21:00 11/05/18 22:00 11/05/18 23:00 Temperature Pulse Rate 110 H 116 H 109 H Respiratory Rate Blood Pressure Pulse Oximetry 11/05/18 23:47 11/06/18 00:00 11/06/18 03:48 Temperature 98.4 F 98.4 F Pulse Rate 110 H 101 H 96 H Respiratory Rate 18 16 Blood Pressure 118/73 121/71 Pulse Oximetry 98 99 11/06/18 04:00 Temperature Pulse Rate 96 H Respiratory Rate Blood Pressure Pulse Oximetry Intake & Output 11/05/18 11/06/18 11/06/18 18:59 06:59 18:59 Intake Total 1150 / 1150 3070 / 3070 100 / 100 Balance 1150 / 1150 3070 / 3070 100 / 100 Weight 64.3 kg Intake: IV 1150 / 1150 2350 / 2350 100 / 100 NS Inj 1,000 ML @ 100 mls/hr IV 900 / 900 2000 / 2000 .CONT .Q10H [facility] Rx#:[id number] Azithromycin Inj 500 MG In NS 250 / 250 Inj 250 ML @ 250 mls/hr IV.SIG Q24H [facility] Rx#:[id number] Zosyn 4.5 GM Premix 4.5 gm In 100 / 100 100 / 100 100 ml @ 200 mls/hr IV.SIG Q6H [facility] Rx#:[id number] Vancomycin Inj 1,000 MG In NS 250 / 250 Inj 250 ML @ 250 mls/hr IV.SIG ONCE ONE Rx#:[id number] Oral 720 / 720 Other: # Voids 3 Date of Last Bowel Movement 11/05/18 11/05/18 # Bowel Movements 5 2 11/04/18 21:30 Blood - Peripheral Aerobic Blood Culture - Preliminary No growth in 2 days 11/04/18 21:30 Blood - Peripheral Anaerobic Blood Culture - Preliminary No growth in 2 days 11/04/18 21:25 Blood - Peripheral Aerobic Blood Culture - Preliminary Staphylococcus coag negative 11/04/18 21:25 Blood - Peripheral Anaerobic Blood Culture - Preliminary Staphylococcus coag negative 11/05/18 14:40 Sputum - Expectorated Sputum Gram Stain - Final 11/05/18 14:40 Sputum - Expectorated Sputum Sputum Culture - Pending 11/05/18 14:40 Sputum - Expectorated Sputum Acid Fast Bacilli Smear - Pending 11/05/18 14:40 Sputum - Expectorated Sputum Mycobacterial Culture - Pending 11/05/18 14:40 Stool Cryptosporidium Antigen - Pending 11/05/18 14:40 Stool Giardia Antigen (SETH) - Pending 11/04/18 12:50 Nasal Wash Influenza Types A,B Antigen - Final Negative for FLU A and B antigen Infection due to influenza A or B cannot be ruled out since the antigen present in the sample may be below the detection limit of the test. Lab - Hematology Results 11/04/18 11/05/18 12:50 06:15 WBC 7.6 4.4 RBC 5.46 H 4.74 Hgb 11.9 10.3 L Hct 37.3 32.3 L MCV 68.4 L 68.2 L MCH 21.9 L 21.7 L MCHC 32.0 31.8 L RDW 17.2 17.1 Plt Count 278 213 MPV 8.7 9.0 Neut % (Auto) 92.8 H 80.9 H Lymph % (Auto) 4.0 L 12.4 Kern % (Auto) 3.1 6.5 Eos % (Auto) 0.0 0.0 Baso % (Auto) 0.1 0.2 Neut # (Auto) 7.1 3.5 Lymph # (Auto) 0.3 L 0.5 L Kern # (Auto) 0.2 0.3 Eos # (Auto) 0.0 0.0 Baso # (Auto) 0.0 0.0 WBC Differential . . Differential Comment Auto diff final Auto diff final Lab - Chemistry Results 11/04/18 11/04/18 11/05/18 12:50 21:25 06:15 Sodium 138 140 Potassium 3.8 3.1 L Chloride 107 110 H Carbon Dioxide 23.9 19.8 L Anion Gap 7 10 BUN 11 6 L Creatinine 0.56 0.41 L Estimated GFR Greater than 89 Greater than 89 Random Glucose 94 87 Lactic Acid 0.9 Calcium 8.3 L 7.1 L* D Calcium Adj for Albumin 8.1 L Magnesium 1.9 Total Bilirubin 0.5 AST 18 ALT 29 Alkaline Phosphatase 119 H Total Protein 7.6 Albumin 3.7 2.8 L D Lipase 82 11/06/18 06:18 Sodium 141 Potassium 3.2 L Chloride 113 H Carbon Dioxide 18.6 L Anion Gap 9 BUN 4 L Creatinine 0.39 L Estimated GFR Greater than 89 Random Glucose 72 L Lactic Acid Calcium 7.6 L Calcium Adj for Albumin Magnesium Total Bilirubin AST ALT Alkaline Phosphatase Total Protein Albumin Lipase Imaging: ITS Impressions Chest X-Ray 11/04/18 17:24 CONCLUSION: Mild diffuse reticular/reticulonodular pattern in the lungs bilaterally. Recommend noncontrast chest CT to evaluate for interstitial lung disease. Chest CTA 11/04/18 18:34 CONCLUSION: 1. Miliary pattern. Differential diagnostic considerations are quite broad and can be divided into the a febrile and nonfebrile patient. If the patient is febrile infectious etiologies that are atypical such as tuberculosis or fungal fungal should be considered. In the afebrile patient considerations would include hypersensitivity pneumonitis, sarcoidosis, and Langerhans cell histiocytosis just to name a few. Abdomen/Pelvis CT 11/04/18 18:59 CONCLUSION: 1. Trace amount of free fluid within the cul-de-sac. 2. No acute abnormality. Physical Exam: PHYSICAL EXAMINATION: GENERAL: Patient in no acute distress. HEENT: Head is atraumatic. Extraocular movements are grossly intact. Pupils reactive to light. No icterus. Oropharynx mucosa moist. No visible lesions. No thrush. NECK: Supple without adenopathy. LUNGS: Clear to auscultation with diminished breath sounds throughout. HEART: Regular S1, S2, without murmurs, rubs or gallops. ABDOMEN: Bowel sounds present. Soft, no tenderness. EXTREMITIES: No clubbing, cyanosis or edema. SKIN: No rash. NEUROLOGIC: No gross focal findings. PSYCHIATRIC: Calm and cooperative. Assessment and Plan - Plan IMPRESSION: Bilateral pulmonary infiltrates with miliary pattern on chest x-ray. The patient with cough along with back pain and diarrhea. She denies exposure to anyone with history of tuberculosis in the past. Differential includes tuberculosis versus viral respiratory infection versus atypical pneumonia versus autoimmune process versus pneumonitis. Bacteremia due to staph coag negative. Possible contamination. RECOMMENDATIONS: 1. Follow sputum culture 2. Monitor sputum AFB. 3. Monitor QuantiFERON test. 4. Monitor mycoplasma serology. 5. Monitor stool for ova and parasites. 6. Continue azithromycin. 7. Continue vancomycin. 8. Continue piperacillin/tazobactam. 9. Repeat blood cultures. 10. Obtain HIV testing. Pre-counseling about the test was discussed with the patient. 11. Monitor the temperature which is low-grade elevated. I will be off this weekend. Other ID MD covering in my absence.
[2018-11-06] MEDS: Vancomycin Inj 1,000 MG in Sodium Chlor 0.9% Inj 250 ML IV.SIG SCH ×2 (16:29→23:37)
--- NOTE | 2018-11-06 17:19 | P.PNIM ---
Subjective Interval history: Cough and shortness of breath are stable, afebrile overnight , no nausea or vomiting. No abdominal pain. Physical Exam Vital signs: Vital Signs 11/05/18 19:00 11/05/18 20:00 11/05/18 21:00 Temperature 98.7 F Pulse Rate 98 H 107 H 110 H Respiratory Rate 18 Blood Pressure 125/73 Pulse Oximetry 100 11/05/18 22:00 11/05/18 23:00 11/05/18 23:47 Temperature 98.4 F Pulse Rate 116 H 109 H 110 H Respiratory Rate 18 Blood Pressure 118/73 Pulse Oximetry 98 11/06/18 00:00 11/06/18 03:48 11/06/18 04:00 Temperature 98.4 F Pulse Rate 101 H 96 H 96 H Respiratory Rate 16 Blood Pressure 121/71 Pulse Oximetry 99 11/06/18 07:15 11/06/18 08:00 11/06/18 12:00 Temperature 99.3 F 99.2 F Pulse Rate 111 H 104 H 113 H Respiratory Rate 18 18 Blood Pressure 111/81 118/72 Pulse Oximetry 99 98 Intake & Output 11/05/18 11/06/18 11/06/18 18:59 06:59 18:59 Intake Total 1150 / 1150 3070 / 3070 100 / 100 Balance 1150 / 1150 3070 / 3070 100 / 100 Weight 64.3 kg Intake: IV 1150 / 1150 2350 / 2350 100 / 100 NS Inj 1,000 ML @ 100 mls/hr IV 900 / 900 2000 / 2000 .CONT .Q10H [facility] Rx#:[id number] Azithromycin Inj 500 MG In NS 250 / 250 Inj 250 ML @ 250 mls/hr IV.SIG Q24H [facility] Rx#:[id number] Zosyn 4.5 GM Premix 4.5 gm In 100 / 100 100 / 100 100 ml @ 200 mls/hr IV.SIG Q6H [facility] Rx#:[id number] Vancomycin Inj 1,000 MG In NS 250 / 250 Inj 250 ML @ 250 mls/hr IV.SIG ONCE ONE Rx#:[id number] Oral 720 / 720 Other: # Voids 3 Date of Last Bowel Movement 11/05/18 11/05/18 11/06/18 # Bowel Movements 5 2 Narrative: Gen.: No acute distress Head: Normocephalic. Atraumatic. Cardiovascular: Regular rate and rhythm. No murmurs, rubs or gallops. Respiratory: Lungs clear to auscultation bilaterally. No wheezes or rhonchi. Abdomen: Soft, nontender, nondistended. No peritoneal signs. Musculoskeletal: No gross deformities. No edema. Neuro: Sensory and motor grossly intact. Cranial nerves II through XII grossly intact. Results Labs CBC & Chem 7: 11/05/18 06:15 11/06/18 06:18 Labs: Microbiology 11/05/18 14:40 Sputum - Expectorated Sputum Acid Fast Bacilli Smear - Final No acid fast bacilli seen 11/05/18 14:40 Sputum - Expectorated Sputum Gram Stain - Final 11/05/18 14:40 Sputum - Expectorated Sputum Sputum Culture - Preliminary Heavy growth normal respiratory roro at 24 hours 11/04/18 21:30 Blood - Peripheral Aerobic Blood Culture - Preliminary No growth in 2 days 11/04/18 21:30 Blood - Peripheral Anaerobic Blood Culture - Preliminary No growth in 2 days 11/04/18 21:25 Blood - Peripheral Aerobic Blood Culture - Preliminary Staphylococcus coag negative 11/04/18 21:25 Blood - Peripheral Anaerobic Blood Culture - Preliminary Staphylococcus coag negative Assessment and Plan Plan 1. Sepsis/? PNA Chest CT significant for miliary pattern concerning for infectious etiology such as tuberculosis or fungal versus pneumonitis or sarcoidosis, continue azithromycin, vancomycin and Zosyn per infectious disease , follow-up workup per infectious disease. Sputum culture, mycoplasma serology, stool for ova and parasites, QuantiFERON gold pending,AFB culture pending, HIV testing. I 2. Nausea/vomiting/diarrhea Symptoms have improved with Zofran CT of the abdomen/pelvis negative for acute process stop scheduled marleni colace and start on imodium as needed. stool negative for c-diff. Discussed Condition With: the patient, RN and . Discharge Planning: home when stable. Progress Note: Quality VTE Deep Vein Thrombosis/Pulmonary Embolism Present on Admission: No
[2018-11-06] MEDS ORDERED: diphenhydrAMINE HCl 50 MG/ML VIAL IV.PUSH PRN (19:06)
[2018-11-06] MEDS: Acetaminophen 325 MG Tablet PO PRN (20:43)
[2018-11-07] MEDS: Pantoprazole Inj 40 MG Vial IV.PUSH SCH ×2 (03:25→15:48)
[2018-11-07] MEDS: Piperacil/Tazo 4.5 GM Premix 4.5 GM/100 ML BAG IV.SIG SCH ×4 (03:25→21:10)
[2018-11-07] MEDS: Vancomycin Inj 1,000 MG in Sodium Chlor 0.9% Inj 250 ML IV.SIG SCH ×3 (08:06→23:13)
--- NOTE | 2018-11-07 08:30 | P.PNIM ---
Subjective Interval history: No complaints other than stomachache, she thinks because she ate [employer]. No nausea or vomiting. No fever chills or night sweats overnight. Still coughing, she feels like it is getting worse, shortness of breath about the same. Physical Exam Vital signs: Vital Signs 11/06/18 12:00 11/06/18 16:00 11/06/18 20:00 Temperature 99.2 F 99.1 F 98.9 F Pulse Rate 113 H 111 H 100 H Respiratory Rate 18 18 18 Blood Pressure 118/72 116/90 132/79 Pulse Oximetry 98 100 100 11/06/18 23:56 11/07/18 03:41 11/07/18 07:43 Temperature 98.7 F 98.6 F 98.4 F Pulse Rate 103 H 93 H 96 H Respiratory Rate 18 18 15 Blood Pressure 114/72 110/65 121/73 Pulse Oximetry 99 98 100 Intake & Output 11/06/18 11/07/18 11/07/18 18:59 06:59 18:59 Intake Total 920 / 920 2430 / 2430 Balance 920 / 920 2430 / 2430 Weight 64.5 kg Intake: IV 200 / 200 1950 / 1950 NS Inj 1,000 ML @ 100 mls/hr IV 1000 / 1000 .CONT .Q10H [facility] Rx#:[id number] Zosyn 4.5 GM Premix 4.5 gm In 200 / 200 200 / 200 100 ml @ 200 mls/hr IV.SIG Q6H [facility] Rx#:[id number] Vancomycin Inj 1,000 MG In NS 750 / 750 Inj 250 ML @ 250 mls/hr IV.SIG Q8H [facility] Rx#:[id number] Oral 720 / 720 480 / 480 Other: # Voids 5 4 Date of Last Bowel Movement 11/06/18 11/06/18 11/06/18 # Bowel Movements 3 1 Narrative: Gen.: No acute distress Head: Normocephalic. Atraumatic. Cardiovascular: Regular rate and rhythm. No murmurs, rubs or gallops. Respiratory: Lungs clear to auscultation bilaterally. No wheezes or rhonchi. Abdomen: Soft, nontender, nondistended. No peritoneal signs. Musculoskeletal: No gross deformities. No edema. Neuro: Sensory and motor grossly intact. Cranial nerves II through XII grossly intact. Results Labs CBC & Chem 7: 11/05/18 06:15 11/07/18 07:41 Labs: Microbiology 11/05/18 14:40 Sputum - Expectorated Sputum Acid Fast Bacilli Smear - Final No acid fast bacilli seen 11/05/18 14:40 Sputum - Expectorated Sputum Gram Stain - Final 11/05/18 14:40 Sputum - Expectorated Sputum Sputum Culture - Preliminary Heavy growth normal respiratory roro at 24 hours 11/04/18 21:30 Blood - Peripheral Aerobic Blood Culture - Preliminary No growth in 2 days 11/04/18 21:30 Blood - Peripheral Anaerobic Blood Culture - Preliminary No growth in 2 days 11/04/18 21:25 Blood - Peripheral Aerobic Blood Culture - Preliminary Staphylococcus coag negative 11/04/18 21:25 Blood - Peripheral Anaerobic Blood Culture - Preliminary Staphylococcus coag negative Assessment and Plan Plan This is a 23-year-old female with past medical history of asthma presenting to the hospital with nausea, vomiting and diarrhea, found to have miliary pattern on chest CT scan. Bilateral pulmonary infiltrates with miliary pattern-rule out tuberculosis, viral respiratory infection, atypical pneumonia, autoimmune disease process with pneumonitis - chest CT significant for miliary pattern concerning for infectious etiology such as tuberculosis or fungal versus pneumonitis or sarcoidosis, continue azithromycin, vancomycin and Zosyn per infectious disease , follow-up workup per infectious disease. Sputum culture showed normal roro, blood culture negative to date, follow-up, mycoplasma serology, stool for ova and parasites, QuantiFERON gold pending,AFB culture pending. C. difficile negative, HIV negative. No leukocytosis but with neutrophilic predominance, no bandemia. Nausea/vomiting/diarrhea-C. difficile negative, CT scan of the abdomen negative for acute process. Improved, still with mild stomachache. Hypokalemia-replace Hypocalcemia-replace Discharge once cleared by infectious disease. Progress Note: Quality VTE Deep Vein Thrombosis/Pulmonary Embolism Present on Admission: No
[2018-11-07] MEDS: Loperamide 2 MG Capsule PO PRN (09:30)
[2018-11-07] MEDS: Azithromycin 250 MG Tablet PO SCH (09:30)
[2018-11-07] MEDS ORDERED: Potassium Chloride Liq 20 MEQ/15 ML UDC PO ONE (09:37)
[2018-11-07] MEDS ORDERED: Calcium Gluconate Inj 1 GM in Dextrose 5% in Water Inj 100 ML IV.SIG ONE ×2 (11:00)
[2018-11-07] MEDS: Sod Chloride 0.9% Inj 1,000 ML IV.CONT SCH ×2 (12:25→23:12)
[2018-11-07] MEDS ORDERED: Pharmacy Ordered Lab Info OTHER ONE (15:45)
[2018-11-08] MEDS: Pantoprazole Inj 40 MG Vial IV.PUSH SCH ×2 (04:14→15:25)
[2018-11-08] MEDS: Piperacil/Tazo 4.5 GM Premix 4.5 GM/100 ML BAG IV.SIG SCH ×4 (04:17→21:26)
[2018-11-08] MEDS: Loperamide 2 MG Capsule PO PRN (07:04)
[2018-11-08] MEDS: Azithromycin 250 MG Tablet PO SCH (09:16)
--- NOTE | 2018-11-08 09:27 | P.PNIM ---
Subjective Interval history: Follow-up for fever, cough On room air, afebrile. Cough is worsening but still dry, cannot spit out any sputum. No chills, no nausea, vomiting, night sweats. Abdominal pain is resolved. No diarrhea. Physical Exam Vital signs: Vital Signs 11/07/18 10:58 11/07/18 12:00 11/07/18 15:43 Temperature 97.6 F 99.0 F Pulse Rate 88 94 H 100 H Respiratory Rate 18 17 Blood Pressure 121/71 111/69 Pulse Oximetry 100 100 11/07/18 16:00 11/07/18 19:00 11/07/18 20:00 Temperature 99.9 F H Pulse Rate 97 H 97 H 96 H Respiratory Rate 16 Blood Pressure 107/69 Pulse Oximetry 99 11/07/18 21:00 11/07/18 22:00 11/07/18 23:00 Temperature Pulse Rate 98 H 84 92 H Respiratory Rate Blood Pressure Pulse Oximetry 11/07/18 23:40 11/08/18 00:00 11/08/18 01:00 Temperature 98.8 F Pulse Rate 95 H 88 94 H Respiratory Rate 16 Blood Pressure 102/67 Pulse Oximetry 99 11/08/18 02:00 11/08/18 03:00 11/08/18 04:00 Temperature 97.8 F Pulse Rate 92 H 81 94 H Respiratory Rate 16 Blood Pressure 111/78 Pulse Oximetry 97 11/08/18 05:00 11/08/18 06:00 11/08/18 08:00 Temperature 98.0 F Pulse Rate 84 78 100 H Respiratory Rate 17 Blood Pressure 118/69 Pulse Oximetry 100 Intake & Output 11/07/18 11/08/18 11/08/18 18:59 06:59 18:59 Intake Total 2160 / 2160 1930 / 1930 Balance 2160 / 2160 1930 / 1930 Weight 64.5 kg Intake: IV 1560 / 1560 1450 / 1450 NS Inj 1,000 ML @ 100 mls/hr IV 1000 / 1000 1000 / 1000 .CONT .Q10H [facility] Rx#:[id number] Calcium Gluconate Inj 1 GM In 110 / 110 D5W Inj 100 ML @ 110 mls/hr IV. SIG ONCE ONE Rx#:[id number] Zosyn 4.5 GM Premix 4.5 gm In 200 / 200 200 / 200 100 ml @ 200 mls/hr IV.SIG Q6H [facility] Rx#:[id number] Vancomycin Inj 1,000 MG In NS 250 / 250 250 / 250 Inj 250 ML @ 250 mls/hr IV.SIG Q12H [facility] Rx#:[id number] Oral 600 / 600 480 / 480 Other: # Voids 4 3 Date of Last Bowel Movement 11/07/18 11/07/18 # Bowel Movements 2 Narrative: Gen.: No acute distress Head: Normocephalic. Atraumatic. Cardiovascular: Regular rate and rhythm. No murmurs, rubs or gallops. Respiratory: Lungs clear to auscultation bilaterally. No wheezes or rhonchi. Abdomen: Soft, nontender, nondistended. No peritoneal signs. Musculoskeletal: No gross deformities. No edema. Neuro: Sensory and motor grossly intact. Cranial nerves II through XII grossly intact. Results Labs CBC & Chem 7: 11/05/18 06:15 11/07/18 07:41 Labs: Microbiology 11/04/18 21:25 Blood - Peripheral Aerobic Blood Culture - Final Staphylococcus haemolyticus 11/04/18 21:25 Blood - Peripheral Anaerobic Blood Culture - Final Staphylococcus coag negative 11/05/18 14:40 Sputum - Expectorated Sputum Gram Stain - Final 11/05/18 14:40 Sputum - Expectorated Sputum Sputum Culture - Final Heavy growth normal respiratory roro 11/06/18 13:41 Blood - Peripheral Aerobic Blood Culture - Preliminary No growth in 1 day 11/06/18 13:41 Blood - Peripheral Anaerobic Blood Culture - Preliminary No growth in 1 day 11/06/18 13:47 Blood - Peripheral Aerobic Blood Culture - Preliminary No growth in 1 day 11/06/18 13:47 Blood - Peripheral Anaerobic Blood Culture - Preliminary No growth in 1 day 11/04/18 21:30 Blood - Peripheral Aerobic Blood Culture - Preliminary No growth in 3 days 11/04/18 21:30 Blood - Peripheral Anaerobic Blood Culture - Preliminary No growth in 3 days Assessment and Plan Plan This is a 23-year-old female with past medical history of asthma presenting to the hospital with nausea, vomiting and diarrhea, found to have miliary pattern on chest CT scan. Bilateral pulmonary infiltrates with miliary pattern-rule out tuberculosis, viral respiratory infection, atypical pneumonia, autoimmune disease process with pneumonitis - chest CT significant for miliary pattern concerning for infectious etiology such as tuberculosis or fungal versus pneumonitis or sarcoidosis, continue azithromycin, vancomycin and Zosyn per infectious disease , follow-up workup per infectious disease. C. difficile negative, HIV negative. No leukocytosis but with neutrophilic predominance, no bandemia. -Sputum culture showed normal roro, blood culture negative to date, follow-up mycoplasma serology, stool for ova and parasites, QuantiFERON gold ,AFB culture pending, Check CBC tomorrow. -Worsening cough-the antitussives. Nausea/vomiting/diarrhea-C. difficile negative, CT scan of the abdomen negative for acute process. Improved, stomachache resolved. Hypokalemia-replaced, recheck tomorrow. Hypocalcemia-replaced, recheck tomorrow. Discharge once cleared by infectious disease. Progress Note: Quality VTE Deep Vein Thrombosis/Pulmonary Embolism Present on Admission: No
[2018-11-08] MEDS ORDERED: Benzonatate 100 MG Capsule PO PRN (11:18)
[2018-11-08] MEDS: Vancomycin Inj 1,000 MG in Sodium Chlor 0.9% Inj 250 ML IV.SIG SCH ×2 (12:08→22:35)
[2018-11-08] MEDS: guaiFENesin 600 MG ER Tablet PO SCH ×2 (12:09→21:24)
[2018-11-08] MEDS: Sod Chloride 0.9% Inj 1,000 ML IV.CONT SCH ×2 (20:19→21:25)
[2018-11-09] MEDS: Sod Chloride 0.9% Inj 1,000 ML IV.CONT SCH (00:19)
[2018-11-09] MEDS: Piperacil/Tazo 4.5 GM Premix 4.5 GM/100 ML BAG IV.SIG SCH ×2 (03:03→09:54)
[2018-11-09] MEDS: Pantoprazole Inj 40 MG Vial IV.PUSH SCH ×2 (03:03→17:42)
[2018-11-09] MEDS ORDERED: Pharmacy Ordered Lab Info OTHER ONE (09:45)
[2018-11-09] MEDS: Azithromycin 250 MG Tablet PO SCH (09:54)
[2018-11-09] MEDS: guaiFENesin 600 MG ER Tablet PO SCH ×2 (09:54→21:23)
[2018-11-09 10:18] LABS: Baso % (Auto) 0.4 % (0.0-2.0); Eos # (Auto) 0.1 th/mm3 (0.0-0.4); Hematocrit 35.6 % (35.0-46.0); Hemoglobin 11.3 gm/dL (11.6-15.3); Lymph # (Auto) 1.3 th/mm3 (1.0-4.8); Lymph % (Auto) 17.9 % (9.0-44.0); Mean Corpuscular HGB Conc 31.6 % (32.0-36.0); Mean Corpuscular Hemoglobin 21.4 pg (27.0-34.0); Mean Corpuscular Volume 67.8 fL (80.0-100.0); Mean Platelet Volume 8.8 fL (7.0-11.0); Mono # (Auto) 0.8 th/mm3 (0.0-0.9); Mono % (Auto) 10.8 % (0.0-8.0); Neut % (Auto) 69.9 % (16.0-70.0); Platelet Count 243 th/mm3 (150-450); Red Blood Count 5.26 mil/mm3 (4.00-5.30); White Blood Count 7.2 th/mm3 (4.0-11.0)
[2018-11-09 10:22] LABS: Calcium 8.4 mg/dL (8.5-10.1); Carbon Dioxide 19.5 meq/L (21.0-32.0); Potassium 3.3 meq/L (3.5-5.1)
--- NOTE | 2018-11-09 11:37 | XR ---
EXAM DATE: 11/09/2018 11:34 AM EST AGE/SEX: 23 years / Female INDICATIONS: Shortness of breath. CLINICAL DATA: This is the patient's subsequent encounter. Patient reports that signs and symptoms h ave been present for 1 week and indicates a pain score of 0/10. MEDICAL/SURGICAL HISTORY: None. None. COMPARISON: [facility] – [place] CHEST 1V SINGLE AP, 11/04/2018. . FINDINGS: Persistent but perhaps slightly improved diffuse miliary pattern of both lungs. No lobar consolidatio n. No pleural effusion or pneumothorax. Heart size stable, within normal limits. CONCLUSION: Persistent diffuse miliary pattern of both lungs, slightly improved. Electronically signed by: Talha Weinstein MD Board Certified Radiologist 11/09/2018 11:36 AM EST
[2018-11-09] MEDS: Vancomycin Inj 1,000 MG in Sodium Chlor 0.9% Inj 250 ML IV.SIG SCH (12:53)
--- NOTE | 2018-11-09 13:48 | P.PNID ---
Subjective Remarks: Patient states that she does not have much appetite. Notes that she was coughing a lot yesterday. Reports that her cough is less today. Cough is nonproductive. Afebrile. Denies nausea. Denies chills. Sputum AFB is negative. QuantiFERON test is still pending. Blood culture has staph coag negative in 2 bottles of one set. The second set is negative. Increased creatinine. Notes that her urine output is good. Chest x-ray shows slight improvement. HIV test is negative. This is a 23-year-old female originally from [place] who has a history of asthma. She presented to the emergency department yesterday with nausea, vomiting and diarrhea. 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 She also states having some body aches and very low energy. Chest x-ray reported mild diffuse reticular/reticulonodular pattern in the lungs bilaterally. Patient has cough, which is nonproductive of sputum. Chest x-ray findings were concerning for possible tuberculosis or other infectious process. The patient reports that her mom, who is a nurse, has had the allergies recently. The patient also noted decreased appetite and she tells me that she has had night sweats, but no weight loss. She does not recall exposure to any family members with tuberculosis in the past. The patient moved to [facility] from [place] 5 years ago. She states that she used to have asthma in childhood and it had resolved and then it came back again about a year ago and she occasionally uses an inhaler. She denies IV drug use. He does not use tobacco or alcohol. Past Medical History: PAST MEDICAL HISTORY: Asthma. PAST SURGICAL HISTORY: No surgical history. Allergies/Adverse Reactions: Allergies No Known Allergies Allergy (Verified 11/04/18 12:44) Objective Vital Signs 11/08/18 14:00 11/08/18 15:00 11/08/18 15:23 Temperature 98.2 F Pulse Rate 86 81 85 Respiratory Rate 17 Blood Pressure 100/62 Pulse Oximetry 99 11/08/18 16:00 11/08/18 17:00 11/08/18 18:00 Temperature Pulse Rate 82 92 H 102 H Respiratory Rate Blood Pressure Pulse Oximetry 11/08/18 19:00 11/08/18 20:00 11/08/18 21:00 Temperature 98.1 F Pulse Rate 95 H 96 H 88 Respiratory Rate 18 Blood Pressure 110/55 L Pulse Oximetry 100 11/08/18 22:00 11/08/18 23:00 11/09/18 00:00 Temperature 98 F Pulse Rate 97 H 76 88 Respiratory Rate 17 Blood Pressure 118/75 Pulse Oximetry 98 11/09/18 01:00 11/09/18 02:00 11/09/18 03:00 Temperature Pulse Rate 73 96 H 77 Respiratory Rate Blood Pressure Pulse Oximetry 11/09/18 03:34 11/09/18 04:00 11/09/18 05:00 Temperature 97.9 F Pulse Rate 77 76 79 Respiratory Rate 16 Blood Pressure 120/81 Pulse Oximetry 99 11/09/18 06:00 Temperature Pulse Rate 96 H Respiratory Rate Blood Pressure Pulse Oximetry Intake & Output 11/08/18 11/09/18 11/09/18 18:59 06:59 18:59 Intake Total 1350 / 1350 2630 / 2630 Balance 1350 / 1350 2630 / 2630 Weight 64.5 kg Intake: IV 450 / 450 2150 / 2150 NS Inj 1,000 ML @ 100 mls/hr IV 1700 / 1700 .CONT .Q10H [facility] Rx#:[id number] Zosyn 4.5 GM Premix 4.5 gm In 200 / 200 200 / 200 100 ml @ 200 mls/hr IV.SIG Q6H [facility] Rx#:[id number] Vancomycin Inj 1,000 MG In NS 250 / 250 250 / 250 Inj 250 ML @ 250 mls/hr IV.SIG Q12H [facility] Rx#:[id number] Oral 900 / 900 480 / 480 Other: # Voids 3 3 Date of Last Bowel Movement 11/08/18 11/08/18 # Bowel Movements 2 11/06/18 13:41 Blood - Peripheral Aerobic Blood Culture - Preliminary No growth in 3 days 11/06/18 13:41 Blood - Peripheral Anaerobic Blood Culture - Preliminary No growth in 3 days 11/06/18 13:47 Blood - Peripheral Aerobic Blood Culture - Preliminary No growth in 3 days 11/06/18 13:47 Blood - Peripheral Anaerobic Blood Culture - Preliminary No growth in 3 days 11/04/18 21:30 Blood - Peripheral Aerobic Blood Culture - Final No growth in 5 days 11/04/18 21:30 Blood - Peripheral Anaerobic Blood Culture - Final No growth in 5 days 11/05/18 14:40 Stool Cryptosporidium Antigen - Final Negative - No Cryptosporicium antigen detected In selected cases of patients with a history of immunosuppression or foreign travel, a full ova and parasites examination may be desired. Contact the microbiology lab if full workup is indicated and subit another specimen for testing. 11/05/18 14:40 Stool Giardia Antigen (SETH) - Final Negative - No Giardia Antigen detected In selected cases of patients with a history of immunosuppression or foreign travel, a full ova and parasites examination may be desired. Contact the microbiology lab if full workup is indicated and subit another specimen for testing. 11/04/18 21:25 Blood - Peripheral Aerobic Blood Culture - Final Staphylococcus haemolyticus 11/04/18 21:25 Blood - Peripheral Anaerobic Blood Culture - Final Staphylococcus coag negative 11/05/18 14:40 Sputum - Expectorated Sputum Gram Stain - Final 11/05/18 14:40 Sputum - Expectorated Sputum Sputum Culture - Final Heavy growth normal respiratory roro 11/05/18 14:40 Sputum - Expectorated Sputum Acid Fast Bacilli Smear - Final No acid fast bacilli seen 11/05/18 14:40 Sputum - Expectorated Sputum Mycobacterial Culture - Pending 11/06/18 14:25 Sputum - Expectorated Sputum Acid Fast Bacilli Smear - Pending 11/06/18 14:25 Sputum - Expectorated Sputum Mycobacterial Culture - Pending Lab - Hematology Results 11/09/18 09:07 WBC 7.2 RBC 5.26 Hgb 11.3 L Hct 35.6 MCV 67.8 L MCH 21.4 L MCHC 31.6 L RDW 18.0 H Plt Count 243 MPV 8.8 Neut % (Auto) 69.9 Lymph % (Auto) 17.9 [place] % (Auto) 10.8 H Eos % (Auto) 1.0 Baso % (Auto) 0.4 Neut # (Auto) 5.0 Lymph # (Auto) 1.3 [place] # (Auto) 0.8 Eos # (Auto) 0.1 Baso # (Auto) 0.0 WBC Differential . Differential Comment Auto diff final Lab - Chemistry Results 11/09/18 11/09/18 09:07 09:07 Sodium 143 Potassium 3.3 L Chloride 113 H Carbon Dioxide 19.5 L Anion Gap 11 BUN 8 Creatinine 1.50 H Estimated GFR 44 L Random Glucose 72 L Calcium 8.4 L Beta HCG, Quant Less than 1 Imaging: ITS Impressions Chest CTA 11/04/18 18:34 CONCLUSION: 1. Miliary pattern. Differential diagnostic considerations are quite broad and can be divided into the a febrile and nonfebrile patient. If the patient is febrile infectious etiologies that are atypical such as tuberculosis or fungal fungal should be considered. In the afebrile patient considerations would include hypersensitivity pneumonitis, sarcoidosis, and Langerhans cell histiocytosis just to name a few. Abdomen/Pelvis CT 11/04/18 18:59 CONCLUSION: 1. Trace amount of free fluid within the cul-de-sac. 2. No acute abnormality. Chest X-Ray 11/09/18 10:36 CONCLUSION: Persistent diffuse miliary pattern of both lungs, slightly improved. Physical Exam: PHYSICAL EXAMINATION: GENERAL: Patient in no acute distress. HEENT: Head is atraumatic. Extraocular movements are grossly intact. Pupils reactive to light. No icterus. Oropharynx mucosa moist. No visible lesions. No thrush. NECK: Supple without adenopathy. LUNGS: Clear to auscultation. HEART: Regular S1, S2, without murmurs, rubs or gallops. ABDOMEN: Bowel sounds present. Soft, no tenderness. EXTREMITIES: No clubbing, cyanosis or edema. SKIN: No rash. NEUROLOGIC: No gross focal findings. PSYCHIATRIC: Calm and cooperative. Assessment and Plan - Plan IMPRESSION: 1. Bilateral pulmonary infiltrates with miliary pattern on chest x-ray. The patient with cough along with back pain and diarrhea. She denies exposure to anyone with history of tuberculosis in the past. Differential includes tuberculosis versus viral respiratory infection versus atypical pneumonia versus autoimmune process versus pneumonitis. Chest x-ray showing improvement. 2. pseudo-bacteremia due to staph coag negative. Repeat blood culture is negative. Different tests for TB evaluation is pending. I spoke to laboratory. They indicate that it may not be back until tomorrow or the next day. 3. Insufficiency. Probably associated with vancomycin. Also may be exacerbated by decreased fluid intake. RECOMMENDATIONS: 1. Follow sputum culture 2. Follow the QuantiFERON test. Hopefully we will get that back tomorrow. If it is negative isolation will be discontinued. 3. Stop vancomycin. 4. Continue azithromycin. 5. Follow the mycoplasma serology. 6. Continue piperacillin for now. 7. Obtain sedimentation rate and C-reactive protein. 8. Request pulmonary consultation for their input. If the QuantiFERON test is negative and the sed rate and C-reactive protein is not significant, we can have the patient continue with azithromycin for atypical coverage. I think she will need to follow-up with pulmonary she gets discharged from the hospital also
[2018-11-09 14:24] LABS: TB1 Ag minus Nil Result 0.02 IU/mL
[2018-11-09] MEDS ORDERED: Potassium Chloride Liq 20 MEQ/15 ML UDC PO ONE (15:00)
--- NOTE | 2018-11-09 15:01 | P.PNIM ---
Subjective Interval history: The cough has resolved. Continues to be afebrile, no nausea or chills. Patient had an episode of vomiting yesterday, no nausea or vomiting today. Physical Exam Vital signs: Vital Signs 11/08/18 15:00 11/08/18 15:23 11/08/18 16:00 Temperature 98.2 F Pulse Rate 81 85 82 Respiratory Rate 17 Blood Pressure 100/62 Pulse Oximetry 99 11/08/18 17:00 11/08/18 18:00 11/08/18 19:00 Temperature Pulse Rate 92 H 102 H 95 H Respiratory Rate Blood Pressure Pulse Oximetry 11/08/18 20:00 11/08/18 21:00 11/08/18 22:00 Temperature 98.1 F Pulse Rate 96 H 88 97 H Respiratory Rate 18 Blood Pressure 110/55 L Pulse Oximetry 100 11/08/18 23:00 11/09/18 00:00 11/09/18 01:00 Temperature 98 F Pulse Rate 76 88 73 Respiratory Rate 17 Blood Pressure 118/75 Pulse Oximetry 98 11/09/18 02:00 11/09/18 03:00 11/09/18 03:34 Temperature 97.9 F Pulse Rate 96 H 77 77 Respiratory Rate 16 Blood Pressure 120/81 Pulse Oximetry 99 11/09/18 04:00 11/09/18 05:00 11/09/18 06:00 Temperature Pulse Rate 76 79 96 H Respiratory Rate Blood Pressure Pulse Oximetry 11/09/18 08:00 11/09/18 12:00 Temperature 97.6 F 97.8 F Pulse Rate 78 73 Respiratory Rate 18 18 Blood Pressure 123/72 103/66 Pulse Oximetry 99 100 Intake & Output 11/08/18 11/09/18 11/09/18 18:59 06:59 18:59 Intake Total 1350 / 1350 2630 / 2630 Balance 1350 / 1350 2630 / 2630 Weight 64.5 kg Intake: IV 450 / 450 2150 / 2150 NS Inj 1,000 ML @ 100 mls/hr IV 1700 / 1700 .CONT .Q10H [facility] Rx#:[id number] Zosyn 4.5 GM Premix 4.5 gm In 200 / 200 200 / 200 100 ml @ 200 mls/hr IV.SIG Q6H [facility] Rx#:[id number] Vancomycin Inj 1,000 MG In NS 250 / 250 250 / 250 Inj 250 ML @ 250 mls/hr IV.SIG Q12H [facility] Rx#:[id number] Oral 900 / 900 480 / 480 Other: # Voids 3 3 Date of Last Bowel Movement 11/08/18 11/08/18 11/08/18 # Bowel Movements 2 Narrative: Gen.: No acute distress Head: Normocephalic. Atraumatic. Cardiovascular: Regular rate and rhythm. No murmurs, rubs or gallops. Respiratory: Lungs clear to auscultation bilaterally. No wheezes or rhonchi. Abdomen: Soft, nontender, nondistended. No peritoneal signs. Musculoskeletal: No gross deformities. No edema. Neuro: Sensory and motor grossly intact. Cranial nerves II through XII grossly intact. Results Labs CBC & Chem 7: 11/09/18 09:07 11/09/18 09:07 Labs: Microbiology 11/06/18 13:41 Blood - Peripheral Aerobic Blood Culture - Preliminary No growth in 3 days 11/06/18 13:41 Blood - Peripheral Anaerobic Blood Culture - Preliminary No growth in 3 days 11/06/18 13:47 Blood - Peripheral Aerobic Blood Culture - Preliminary No growth in 3 days 11/06/18 13:47 Blood - Peripheral Anaerobic Blood Culture - Preliminary No growth in 3 days 11/04/18 21:30 Blood - Peripheral Aerobic Blood Culture - Final No growth in 5 days 11/04/18 21:30 Blood - Peripheral Anaerobic Blood Culture - Final No growth in 5 days 11/05/18 14:40 Stool Cryptosporidium Antigen - Final Negative - No Cryptosporicium antigen detected In selected cases of patients with a history of immunosuppression or foreign travel, a full ova and parasites examination may be desired. Contact the microbiology lab if full workup is indicated and subit another specimen for testing. 11/05/18 14:40 Stool Giardia Antigen (SETH) - Final Negative - No Giardia Antigen detected In selected cases of patients with a history of immunosuppression or foreign travel, a full ova and parasites examination may be desired. Contact the microbiology lab if full workup is indicated and subit another specimen for testing. Imaging Imaging: Impressions Chest X-Ray 11/09/18 10:36 CONCLUSION: Persistent diffuse miliary pattern of both lungs, slightly improved. Assessment and Plan Plan This is a 23-year-old female with past medical history of asthma presenting to the hospital with nausea, vomiting and diarrhea, found to have miliary pattern on chest CT scan. Bilateral pulmonary infiltrates with miliary pattern-rule out tuberculosis, viral respiratory infection, atypical pneumonia, autoimmune disease process with pneumonitis - chest CT significant for miliary pattern concerning for infectious etiology such as tuberculosis or fungal versus pneumonitis or sarcoidosis. C. difficile negative, HIV negative. No leukocytosis but with neutrophilic predominance, no bandemia. Sputum culture showed normal roro, AFB negative, Giardia and cryptosporidium negative. Previous blood culture showed Staphylococcus hemolyticus, repeat blood culture negative to date. Per ID, stop vancomycin, continue Zosyn and azithromycin, awaiting mycoplasma serology. Check ESR and CRP, consult pulmonary. F/u QuantiFERON gold hopefully back tomorrow. Consult pulmonary per ID. -If QuantiFERON test is negative and sed rate/CRP not significant, continue azithromycin for atypical coverage and follow-up as outpatient. Please see ID notes for details. Nausea/vomiting/diarrhea-C. difficile negative, CT scan of the abdomen negative for acute process. Improved, stomachache resolved. Acute kidney insufficiency-start IVF, recheck BMP tomorrow. Hypokalemia-replace orally today. Hypocalcemia-replaced Discharge once cleared by infectious disease. Progress Note: Quality VTE Deep Vein Thrombosis/Pulmonary Embolism Present on Admission: No
[2018-11-09] MEDS: Piperacil/Tazo 3.375 GM Premix 3.375 GM/50 ML PIGGYBACK IV.SIG SCH ×2 (17:42→21:23)
[2018-11-09] MEDS: Acetaminophen 325 MG Tablet PO PRN (17:51)
--- NOTE | 2018-11-09 18:34 | MB ---
cc: Isidro Felix MD DATE: 11/09/2018 REASON FOR CONSULTATION: Pneumonia. HISTORY OF PRESENT ILLNESS: The patient is a 23-year-old female from [place], admitted with nausea and vomiting. She has known history of asthma, has a cough, small amount of whitish sputum. Denies history of fever, chills, or hemoptysis. CT angiogram with bilateral lung infiltrates, nodular in pattern. The patient feels better this a.m. She has been started on antibiotic therapy, as well as IV hydration. PAST MEDICAL HISTORY: Bronchial asthma. SOCIAL HISTORY: Does not smoke, does not drink. No TB, no industrial exposure. FAMILY HISTORY: Noncontributory. REVIEW OF SYSTEMS: A 12-point review of systems as per HPI and past history, otherwise negative. PHYSICAL EXAMINATION: GENERAL: The patient is alert. VITAL SIGNS: Temperature 98, pulse 90, respiratory rate 18, blood pressure 130/70. HEENT: Unremarkable. Eyes without icterus. NECK: Without adenopathy or thyroid enlargement. CHEST: Few scattered rhonchi bilaterally. CARDIAC: PMI not appreciated. S1, S2 audible. No murmur. No rub. ABDOMEN: Lax, audible bowel sounds. EXTREMITIES: No clubbing, cyanosis or edema. IMAGING DATA: CT scan of the abdomen with trace amount of free fluid within the cul-de-sac. No acute abnormalities seen. CT scan of the chest: Bilateral miliary pattern. IMPRESSION: 1. Bilateral pneumonia, miliary pattern as mentioned above. 2. Bronchial asthma. PLAN: The patient was placed on antibiotic therapies and followed by infectious disease. The change on her chest x-ray may be acute or chronic in nature. She has no history to suggest tuberculosis or fungal infection in the past. Serology has been ordered, as well as appropriate cultures. We will follow results of same. A collagen vascular disorder is obviously a possibility; however, does not seem likely. Will obtain collagen vascular markers as well for sake of completion. Meanwhile, a followup chest x-ray does reveal improvement and clinically the patient is improving. We will follow her care along with you and, depending on progress, proceed further. Isidro Felix MD WWW/ , 05:24 PM , 05:32 PM
[2018-11-10] MEDS: Piperacil/Tazo 3.375 GM Premix 3.375 GM/50 ML PIGGYBACK IV.SIG SCH ×3 (04:12→16:31)
[2018-11-10] MEDS: Pantoprazole Inj 40 MG Vial IV.PUSH SCH ×2 (04:12→16:31)
[2018-11-10 05:54] LABS: Calcium 7.7 mg/dL (8.5-10.1); Carbon Dioxide 21.7 meq/L (21.0-32.0)
[2018-11-10] MEDS: guaiFENesin 600 MG ER Tablet PO SCH (08:52)
[2018-11-10] MEDS: Azithromycin 250 MG Tablet PO SCH (08:52)
[2018-11-10] MEDS: Acetaminophen 325 MG Tablet PO PRN (09:31)
[2018-11-10 10:55] VITALS: O2SAT 100
[2018-11-10 12:23] VITALS: RESP 16
--- NOTE | 2018-11-10 13:40 | P.PNID ---
Subjective Remarks: Patient has no new complaints. Notes that the cough is improved. Afebrile. Denies shortness of breath or chest pain. QuantiFERON test is negative. Mycoplasma IgG is positive. No acid-fast bacilli seen on sputum AFB. Blood culture has staph coag negative in 2 bottles of one set. The second set is negative. Increased creatinine. Chest x-ray shows slight improvement. HIV test is negative. This is a 23-year-old female originally from [place] who has a history of asthma. She presented to the emergency department yesterday with nausea, vomiting and diarrhea. The patient reports that she woke up in the hotel night auditor hours with diarrhea, nausea and back pain. She also states having some body aches and very low energy. Chest x-ray reported mild diffuse reticular/reticulonodular pattern in the lungs bilaterally. Patient has cough, which is nonproductive of sputum. Chest x-ray findings were concerning for possible tuberculosis or other infectious process. The patient reports that her mom, who is a nurse, has had the allergies recently. The patient also noted decreased appetite and she tells me that she has had night sweats, but no weight loss. She does not recall exposure to any family members with tuberculosis in the past. The patient moved to [facility] from [place] 5 years ago. She states that she used to have asthma in childhood and it had resolved and then it came back again about a year ago and she occasionally uses an inhaler. She denies IV drug use. He does not use tobacco or alcohol. Past Medical History: PAST MEDICAL HISTORY: Asthma. PAST SURGICAL HISTORY: No surgical history. Allergies/Adverse Reactions: Allergies No Known Allergies Allergy (Verified 11/04/18 12:44) Objective Vital Signs 11/09/18 14:00 11/09/18 15:00 11/09/18 16:00 Temperature 100.5 F H Pulse Rate 79 85 86 Respiratory Rate 18 Blood Pressure 121/70 Pulse Oximetry 100 11/09/18 17:00 11/09/18 18:00 11/09/18 19:00 Temperature Pulse Rate 94 H 89 66 Respiratory Rate Blood Pressure Pulse Oximetry 11/09/18 20:00 11/09/18 21:00 11/09/18 22:00 Temperature 98.1 F Pulse Rate 76 87 92 H Respiratory Rate 18 Blood Pressure 123/68 Pulse Oximetry 98 11/09/18 23:00 11/09/18 23:35 11/10/18 00:00 Temperature 97.8 F Pulse Rate 88 88 88 Respiratory Rate 18 Blood Pressure 130/74 Pulse Oximetry 97 11/10/18 01:00 11/10/18 02:00 11/10/18 03:00 Temperature Pulse Rate 96 H 78 66 Respiratory Rate Blood Pressure Pulse Oximetry 11/10/18 04:00 11/10/18 05:00 11/10/18 06:00 Temperature 98.1 F Pulse Rate 70 66 69 Respiratory Rate 16 Blood Pressure 126/60 Pulse Oximetry 98 11/10/18 07:00 11/10/18 08:00 11/10/18 09:00 Temperature 97.2 F L Pulse Rate 70 66 59 L Respiratory Rate 18 Blood Pressure 140/89 Pulse Oximetry 100 11/10/18 12:21 Temperature 98.1 F Pulse Rate 81 Respiratory Rate 16 Blood Pressure 107/62 Pulse Oximetry 100 Intake & Output 11/09/18 11/10/18 11/10/18 18:59 06:59 18:59 Intake Total 1900 / 1900 1440 / 1440 50 / 50 Output Total 1500 / 1500 Balance 1900 / 1900 -60 / -60 50 / 50 Weight 65 kg Intake: IV 800 / 800 1200 / 1200 50 / 50 LR 1000 mL Inj 1,000 ML @ 84 1000 / 1000 mls/hr IV.CONT .[id number] [facility] Rx# :[id number] NS Inj 1,000 ML @ 100 mls/hr IV 500 / 500 .CONT .Q10H [facility] Rx#:[id number] Zosyn 3.375 GM Premix 3.375 gm 50 / 50 100 / 100 50 / 50 In 50 ml @ 100 mls/hr IV.SIG Q6H [facility] Rx#:[id number] Zosyn 4.5 GM Premix 4.5 gm In 100 / 100 100 ml @ 200 mls/hr IV.SIG Q6H [facility] Rx#:[id number] Vancomycin Inj 1,000 MG In NS 250 / 250 Inj 250 ML @ 250 mls/hr IV.SIG Q12H [facility] Rx#:[id number] Oral 1100 / 1100 240 / 240 Output: Urine 1500 / 1500 Other: # Voids 4 Date of Last Bowel Movement 11/08/18 11/09/18 11/10/18 # Bowel Movements 1 11/06/18 13:41 Blood - Peripheral Aerobic Blood Culture - Preliminary No growth in 4 days 11/06/18 13:41 Blood - Peripheral Anaerobic Blood Culture - Preliminary No growth in 4 days 11/06/18 13:47 Blood - Peripheral Aerobic Blood Culture - Preliminary No growth in 4 days 11/06/18 13:47 Blood - Peripheral Anaerobic Blood Culture - Preliminary No growth in 4 days 11/06/18 14:25 Sputum - Expectorated Sputum Acid Fast Bacilli Smear - Final No acid fast bacilli seen 11/06/18 14:25 Sputum - Expectorated Sputum Mycobacterial Culture - Pending 11/04/18 21:30 Blood - Peripheral Aerobic Blood Culture - Final No growth in 5 days 11/04/18 21:30 Blood - Peripheral Anaerobic Blood Culture - Final No growth in 5 days 11/05/18 14:40 Stool Cryptosporidium Antigen - Final Negative - No Cryptosporicium antigen detected In selected cases of patients with a history of immunosuppression or foreign travel, a full ova and parasites examination may be desired. Contact the microbiology lab if full workup is indicated and subit another specimen for testing. 11/05/18 14:40 Stool Giardia Antigen (SETH) - Final Negative - No Giardia Antigen detected In selected cases of patients with a history of immunosuppression or foreign travel, a full ova and parasites examination may be desired. Contact the microbiology lab if full workup is indicated and subit another specimen for testing. 11/04/18 21:25 Blood - Peripheral Aerobic Blood Culture - Final Staphylococcus haemolyticus 11/04/18 21:25 Blood - Peripheral Anaerobic Blood Culture - Final Staphylococcus coag negative 11/05/18 14:40 Sputum - Expectorated Sputum Gram Stain - Final 11/05/18 14:40 Sputum - Expectorated Sputum Sputum Culture - Final Heavy growth normal respiratory roro Lab - Hematology Results 11/09/18 11/09/18 09:07 09:07 WBC 7.2 RBC 5.26 Hgb 11.3 L Hct 35.6 MCV 67.8 L MCH 21.4 L MCHC 31.6 L RDW 18.0 H Plt Count 243 MPV 8.8 Neut % (Auto) 69.9 Lymph % (Auto) 17.9 Moffat % (Auto) 10.8 H Eos % (Auto) 1.0 Baso % (Auto) 0.4 Neut # (Auto) 5.0 Lymph # (Auto) 1.3 Moffat # (Auto) 0.8 Eos # (Auto) 0.1 Baso # (Auto) 0.0 WBC Differential . Differential Comment Auto diff final ESR 24 H Lab - Chemistry Results 11/09/18 11/09/18 11/09/18 09:07 09:07 09:07 Sodium 143 Potassium 3.3 L Chloride 113 H Carbon Dioxide 19.5 L Anion Gap 11 BUN 8 Creatinine 1.50 H Estimated GFR 44 L Random Glucose 72 L Calcium 8.4 L C-Reactive Protein 2.90 H Beta HCG, Quant Less than 1 11/10/18 05:20 Sodium 144 Potassium 3.0 L Chloride 112 H Carbon Dioxide 21.7 Anion Gap 10 BUN 6 L Creatinine 1.23 H Estimated GFR 55 L Random Glucose 101 Calcium 7.7 L C-Reactive Protein Beta HCG, Quant Imaging: ITS Impressions Chest CTA 11/04/18 18:34 CONCLUSION: 1. Miliary pattern. Differential diagnostic considerations are quite broad and can be divided into the a febrile and nonfebrile patient. If the patient is febrile infectious etiologies that are atypical such as tuberculosis or fungal fungal should be considered. In the afebrile patient considerations would include hypersensitivity pneumonitis, sarcoidosis, and Langerhans cell histiocytosis just to name a few. Abdomen/Pelvis CT 11/04/18 18:59 CONCLUSION: 1. Trace amount of free fluid within the cul-de-sac. 2. No acute abnormality. Chest X-Ray 11/09/18 10:36 CONCLUSION: Persistent diffuse miliary pattern of both lungs, slightly improved. Physical Exam: PHYSICAL EXAMINATION: GENERAL: Patient in no acute distress. HEENT: Head is atraumatic. Extraocular movements are grossly intact. Pupils reactive to light. No icterus. Oropharynx mucosa moist. No visible lesions. No thrush. NECK: Supple without adenopathy. LUNGS: Clear to auscultation. No rhonchi. No wheezing.. HEART: Regular S1, S2, without murmurs, rubs or gallops. ABDOMEN: Bowel sounds present. Soft, no tenderness. EXTREMITIES: No clubbing, cyanosis or edema. SKIN: No rash. NEUROLOGIC: No gross focal findings. PSYCHIATRIC: Calm and cooperative. Assessment and Plan - Plan IMPRESSION: 1. Bilateral pulmonary infiltrates with miliary pattern on chest x-ray. Current sputum AFB smear negative. Unlikely to be TB. Positive mycoplasma IgG. Possible atypical pneumonia/pneumonitis. T Chest x-ray showing improvement. 2. pseudo-bacteremia due to staph coag negative. Repeat blood culture is negative. Different tests for TB evaluation is pending. I spoke to laboratory. They indicate that it may not be back until tomorrow or the next day. 3. Renal insufficiency. Probably associated with vancomycin. Also may be exacerbated by decreased fluid intake. Improving. RECOMMENDATIONS: 1. Okay to discharge with azithromycin 500 mg p.o. daily times 10 days. 2. Follow-up with outpatient physician. She needs follow-up chest x-ray in the future should follow-up with a pulmonary physician after discharge. Discussed with Dr. Terry.
--- NOTE | 2018-11-10 16:08 | P.PNIM ---
Subjective Interval history: Patient says she is feeling well. Denies any chest pain or shortness of breath. Reports coughing much improved. Physical Exam Vital signs: Vital Signs 11/09/18 17:00 11/09/18 18:00 11/09/18 19:00 Temperature Pulse Rate 94 H 89 66 Respiratory Rate Blood Pressure Pulse Oximetry 11/09/18 20:00 11/09/18 21:00 11/09/18 22:00 Temperature 98.1 F Pulse Rate 76 87 92 H Respiratory Rate 18 Blood Pressure 123/68 Pulse Oximetry 98 11/09/18 23:00 11/09/18 23:35 11/10/18 00:00 Temperature 97.8 F Pulse Rate 88 88 88 Respiratory Rate 18 Blood Pressure 130/74 Pulse Oximetry 97 11/10/18 01:00 11/10/18 02:00 11/10/18 03:00 Temperature Pulse Rate 96 H 78 66 Respiratory Rate Blood Pressure Pulse Oximetry 11/10/18 04:00 11/10/18 05:00 11/10/18 06:00 Temperature 98.1 F Pulse Rate 70 66 69 Respiratory Rate 16 Blood Pressure 126/60 Pulse Oximetry 98 11/10/18 07:00 11/10/18 08:00 11/10/18 09:00 Temperature 97.2 F L Pulse Rate 70 66 59 L Respiratory Rate 18 Blood Pressure 140/89 Pulse Oximetry 100 11/10/18 10:00 11/10/18 11:00 11/10/18 12:00 Temperature Pulse Rate 58 L 62 92 H Respiratory Rate 16 Blood Pressure Pulse Oximetry 11/10/18 12:21 11/10/18 13:00 11/10/18 14:00 Temperature 98.1 F Pulse Rate 81 72 72 Respiratory Rate 16 Blood Pressure 107/62 Pulse Oximetry 100 11/10/18 15:00 Temperature Pulse Rate 60 Respiratory Rate Blood Pressure Pulse Oximetry Intake & Output 11/09/18 11/10/18 11/10/18 18:59 06:59 18:59 Intake Total 1900 / 1900 1440 / 1440 50 / 50 Output Total 1500 / 1500 Balance 1900 / 1900 -60 / -60 50 / 50 Weight 65 kg Intake: IV 800 / 800 1200 / 1200 50 / 50 LR 1000 mL Inj 1,000 ML @ 84 1000 / 1000 mls/hr IV.CONT .[id number] [facility] Rx# :[id number] NS Inj 1,000 ML @ 100 mls/hr IV 500 / 500 .CONT .Q10H [facility] Rx#:[id number] Zosyn 3.375 GM Premix 3.375 gm 50 / 50 100 / 100 50 / 50 In 50 ml @ 100 mls/hr IV.SIG Q6H [facility] Rx#:[id number] Zosyn 4.5 GM Premix 4.5 gm In 100 / 100 100 ml @ 200 mls/hr IV.SIG Q6H [facility] Rx#:[id number] Vancomycin Inj 1,000 MG In NS 250 / 250 Inj 250 ML @ 250 mls/hr IV.SIG Q12H [facility] Rx#:[id number] Oral 1100 / 1100 240 / 240 Output: Urine 1500 / 1500 Other: # Voids 4 Date of Last Bowel Movement 11/08/18 11/09/18 11/10/18 # Bowel Movements 1 Narrative: GENERAL: Patient sitting up in bed. Appears comfortable. SKIN: Warm and dry. HEAD: Normocephalic. EYES: No scleral icterus. No injection or drainage. NECK: Supple, trachea midline. No JVD. CARDIOVASCULAR: Regular rate and rhythm without murmurs, gallops, or rubs. RESPIRATORY: Breath sounds equal bilaterally. No accessory muscle use. GASTROINTESTINAL: Abdomen soft, non-tender, nondistended. MUSCULOSKELETAL: No cyanosis, or edema. BACK: Nontender without obvious deformity. No CVA tenderness. Results Labs CBC & Chem 7: 11/09/18 09:07 11/10/18 05:20 Labs: Microbiology 11/06/18 13:41 Blood - Peripheral Aerobic Blood Culture - Preliminary No growth in 4 days 11/06/18 13:41 Blood - Peripheral Anaerobic Blood Culture - Preliminary No growth in 4 days 11/06/18 13:47 Blood - Peripheral Aerobic Blood Culture - Preliminary No growth in 4 days 11/06/18 13:47 Blood - Peripheral Anaerobic Blood Culture - Preliminary No growth in 4 days 11/06/18 14:25 Sputum - Expectorated Sputum Acid Fast Bacilli Smear - Final No acid fast bacilli seen Assessment and Plan Plan This is a 23-year-old female with past medical history of asthma presenting to the hospital with nausea, vomiting and diarrhea, found to have miliary pattern on chest CT scan. //Bilateral pulmonary infiltrates with miliary pattern-rule out tuberculosis, viral respiratory infection, atypical pneumonia, autoimmune disease process with pneumonitis - chest CT significant for miliary pattern concerning for infectious etiology such as tuberculosis or fungal versus pneumonitis or sarcoidosis. C. difficile negative, HIV negative. No leukocytosis but with neutrophilic predominance, no bandemia. Sputum culture showed normal roro, AFB negative, Giardia and cryptosporidium negative. Previous blood culture showed Staphylococcus hemolyticus, repeat blood culture negative to date. Per ID, stop vancomycin, continue Zosyn and azithromycin, awaiting mycoplasma serology. Check ESR and CRP, consult pulmonary. F/u QuantiFERON gold hopefully back tomorrow. Consult pulmonary per ID. -If QuantiFERON test is negative and sed rate/CRP not significant, continue azithromycin for atypical coverage and follow-up as outpatient. Please see ID notes for details. = 11/10. Discussed with infectious disease. Discharge home with 10-day course of azithromycin. Follow-up with primary care, pulmonology as outpatient. //vomiting/diarrhea-C. difficile negative, CT scan of the abdomen negative for acute process. Improved, stomachache resolved. //Acute kidney insufficiency-start IVF, recheck BMP tomorrow. -Creatinine 1.2. Improved. Likely secondary to contrast. Nausea vomiting resolved. Follow with primary care. //Hypokalemia-replace orally today. = 11/10. Potassium 3.0. Replace orally. Follow-up primary care. //Hypocalcemia-replaced. Follow with primary care. Discussed Condition With: Patient, nurse, infectious disease. Discharge Planning: Patient will need to follow-up with primary care within 1 week. Follow-up with pulmonology in 1 week. Patient conveys understanding. Progress Note: Quality VTE Deep Vein Thrombosis/Pulmonary Embolism Present on Admission: No
--- NOTE | 2018-11-10 16:21 | P.DS ---
DS: Providers Date of admission: 11/04/18 21:01 Primary care physician: No Primary Care Physician Consults: 11/04/18 21:01 Consult to Infectious Diseases Routine Consulting Provider: Dominik Fuentes Reason for Consultation: Chest CT with miliary pattern concerning for tb/ fungal infection vs noninfectious etiology Notified:: Service Spoke with:: JAHAIRA Date Notified:: 11/04/18 Time Notified:: 21:59 Ordering Provider: ZAY 11/09/18 13:48 Consult to Pulmonology Routine Consulting Provider: Isidro Felix Reason for Consultation: Bilateral lung infiltrates. Miliary pattern. Notified:: Office Spoke with:: Kevin Date Notified:: 11/09/18 Time Notified:: 13:50 Ordering Provider: ODALIS DS: Summary This is a 23-year-old female with past medical history of asthma presenting to the hospital with nausea, vomiting and diarrhea, found to have miliary pattern on chest CT scan. //Bilateral pulmonary infiltrates with miliary pattern-rule out tuberculosis, viral respiratory infection, atypical pneumonia, autoimmune disease process with pneumonitis - chest CT significant for miliary pattern concerning for infectious etiology such as tuberculosis or fungal versus pneumonitis or sarcoidosis. C. difficile negative, HIV negative. No leukocytosis but with neutrophilic predominance, no bandemia. Sputum culture showed normal roro, AFB negative, Giardia and cryptosporidium negative. Previous blood culture showed Staphylococcus hemolyticus, repeat blood culture negative to date. Per ID, stop vancomycin, continue Zosyn and azithromycin, awaiting mycoplasma serology. Check ESR and CRP, consult pulmonary. F/u QuantiFERON gold hopefully back tomorrow. Consult pulmonary per ID. -If QuantiFERON test is negative and sed rate/CRP not significant, continue azithromycin for atypical coverage and follow-up as outpatient. Please see ID notes for details. = 11/10. Discussed with infectious disease. Discharge home with 10-day course of azithromycin. Follow-up with primary care, pulmonology as outpatient. //vomiting/diarrhea-C. difficile negative, CT scan of the abdomen negative for acute process. Improved, stomachache resolved. //Acute kidney insufficiency-start IVF, recheck BMP tomorrow. -Creatinine 1.2. Improved. Likely secondary to contrast. Nausea vomiting resolved. Follow with primary care. //Hypokalemia-replace orally today. = 11/10. Potassium 3.0. Replace orally. Follow-up primary care. //Hypocalcemia-replaced. Follow with primary care. Discussed Condition With: Patient, nurse, infectious disease. Discharge Planning: Patient will need to follow-up with primary care within 1 week. Follow-up with pulmonology in 1 week. Patient conveys understanding. Time Spent with Patient Total time spent providing and/or coordinating discharge services: Greater than 30 minutes Quality: VTE Deep Vein Thrombosis/Pulmonary Embolism Present on Admission: No Results Labs on day of discharge: Labs from last 24 hours 11/10/18 05:20 Sodium 144 Potassium 3.0 L Chloride 112 H Carbon Dioxide 21.7 Anion Gap 10 BUN 6 L Creatinine 1.23 H Estimated GFR 55 L Random Glucose 101 Calcium 7.7 L Preliminary micro results at discharge 11/06/18 13:41 Aerobic Blood Culture - Preliminary Blood - Peripheral No growth in 4 days Anaerobic Blood Culture - Preliminary No growth in 4 days 11/06/18 13:47 Aerobic Blood Culture - Preliminary Blood - Peripheral No growth in 4 days Anaerobic Blood Culture - Preliminary No growth in 4 days Impressions ITS Impressions Chest CTA 11/04/18 18:34 CONCLUSION: 1. Miliary pattern. Differential diagnostic considerations are quite broad and can be divided into the a febrile and nonfebrile patient. If the patient is febrile infectious etiologies that are atypical such as tuberculosis or fungal fungal should be considered. In the afebrile patient considerations would include hypersensitivity pneumonitis, sarcoidosis, and Langerhans cell histiocytosis just to name a few. Abdomen/Pelvis CT 11/04/18 18:59 CONCLUSION: 1. Trace amount of free fluid within the cul-de-sac. 2. No acute abnormality. Chest X-Ray 11/09/18 10:36 CONCLUSION: Persistent diffuse miliary pattern of both lungs, slightly improved. Discharge Plan Discharge Disposition Patient Disposition: 01 Discharge Home Discharge Condition Condition: Stable Discharge Order Discharge Orders: Discharge Order (Routine); Ordered 11/10/18 Ordered By: Alpesh Terry Discharge Details Anticipated Discharge Date: 11/10/18 Discharge Comment: patient need to have followup scheduled with PCP and pulmonary in 1 week. Physicians Team ED Provider: [facility] ED Midlevel Provider: Felecia Sotomayor Primary Care Provider: Primary Care Jasmin Perez Attending Provider: Terry,Alpesh Other Providers: Dominik Fuentes ; Isidro Felix Rxs /Orders / Referrals /Forms Prescriptions: New azithromycin 250 mg Tablet 500 mg PO DAILY 10 Days Qty: 20 RF: 0 guaifenesin [Mucinex] 600 mg Tablet Extended Release 12hr 600 mg PO BID 7 Days Qty: 14 RF: 0 Referrals: Primary Care Jasmin Perez [Primary Care Provider] - See Instructions (PLEASE CALL [facility] AT [phone] FOR A HOSPITAL FOLLOW UP APPT WITHIN 1 WEEK.) Isidro Felix MD [Physician] - See Instructions Discharge Instructions Patient Printed Instructions: Azithromycin (By mouth), Pneumonia (GEN), Tachycardia (GEN) Post Discharge Care Plan Care Plan Goals: Your Health Problems: Goals to Promote Your Health: * To prevent worsening of your condition * To maintain your health at the optimal level Directions to Meet Your Goals: * Take your medications as prescribed * Follow your dietary instruction * Follow activity as directed * Keep your appointments as scheduled * Take your immunizations and boosters as scheduled * If your symptoms worsen call your PCP * If no PCP go to Urgent Care or Emergency Room Smoking is dangerous to your health. Avoid second hand smoke. You may reach the 24-hour crisis hotline for domestic abuse at . Status ED Status: Left Department
[2018-11-10 18:49] VITALS: BP 137/73; TEMP 98
[2018-11-10 18:51] VITALS: PULSE 97
== END 2018-11-10 17:59 | disposition home or self-care (01) | DRG 871 ==
LOC: NEPK 11:50 → NEDA 21:01 → HCIS 11-05 00:37
PROVIDERS: ADMIT Internal Medicine; ATTEND Internal Medicine
CPT/HCPCS: 71010; 71045; 71275; 74177; 76937; 80048; 80053; 80202; 81001; 82040; 82565; 83605; 83690; 83735; 84702; 84703; 85025; 85651; 85652; 86140; 86403; 86480; 86738; 87015; 87040; 87070; 87077; 87116; 87186; 87205; 87206; 87275; 87276; 87328; 87329; 87389; 87493; 87804; 90761; 90774; 90775; 90776; 90784; 93005; 96361; 96374; 96375; 96376; 99285; C8952; C9113; J0456; J0610; J0696; J1885; J2405; J2543; J3370; J7030; J7050; J7120; Q9967